=== PATIENT | female | born 1970 | race Caucasian/White ===

== ENCOUNTER → 2018-11-07 11:57 | Outpatient (CLI) | payer OTHER, SELFPAY ==
[2018-11-07 12:48] LABS: Hematocrit 35.5 % (36-46); Hemoglobin 12.1 g/dL (12.0-16.0); Mean Corpuscular HGB Conc 34.1 % (30-36); Mean Corpuscular Hemoglobin 34.8 PG (26-34); Mean Corpuscular Volume 102.1 fL (80-100); Red Blood Cell Count 3.48 X10^6/uL (4.0-5.2); Red Cell Distribution Width 16.9 % (11.6-14.8); White Blood Cell Count 4.3 X10^3/uL (4.5-11.0)
[2018-11-07 13:02] LABS: Alanine Aminotransferase 21 IU/L (9-52); Albumin 4.2 g/dL (3.5-5.0); Albumin Globulin Ratio 1.5 (1.0-2.8); Alkaline Phosphatase 57 U/L (38-126); Aspartate Aminotransferase 16 IU/L (14-36); BUN Creatinine Ratio 27.5 (6-22); Bilirubin Total 0.1 mg/dL (0.2-1.3); Blood Urea Nitrogen 22 mg/dL (7-17); Calcium 9.3 mg/dL (8.4-10.2); Carbon Dioxide 24 mmol/L (22-32); Chloride 106 mmol/L (98-107); Estimated Glomerular Filt Rate > 60.0 mL/min (>60); Globulin 2.8 g/dL (1.7-4.1); Glucose 87 mg/dL (70-100); HEMOLYSIS < 15 (0-50); Potassium 4.1 mmol/L (3.4-5.1); Sodium 140 mmol/L (137-145)
[2018-11-07 13:32] LABS: Add Manual Diff / Slide Review YES
[2018-11-07 13:35] LABS: Neutrophils Absolute Manual 1462 /uL (3000-5900); Total Cells Counted 50
[2018-11-07 13:36] LABS: Anisocytosis 2+
[2018-11-07 13:43] LABS: Platelet Count 28 X10^3/uL (150-400)
== END ==
PROVIDERS: Visit Provider Orthopaedic Surgery Orthopaedic Surgery of the Spine
DX: Z01.812 Encounter for preprocedural laboratory examination (principal)
CPT/HCPCS: 36415; 80053; 85025

== ENCOUNTER → 2018-11-20 15:03 | Outpatient (CLI) | payer OTHER, SELFPAY ==
[2018-11-20 15:52] LABS: Add Manual Diff / Slide Review NO; Basophils Absolute Auto 0 /uL (0-100); Basophils Percent Auto 0.3 % (0-2); Eosinophils Absolute Auto 0 /uL (0-450); Eosinophils Percent Auto 0.5 % (2-4); Hematocrit 34.3 % (36-46); Hemoglobin 11.4 g/dL (12.0-16.0); Lymphocytes Absolute Auto 1800 /uL (1100-4500); Lymphocytes Percent Auto 46.1 % (25-40); Mean Corpuscular HGB Conc 33.1 % (30-36); Mean Corpuscular Hemoglobin 34.5 PG (26-34); Mean Corpuscular Volume 104.2 fL (80-100); Monocytes Absolute Auto 400 /uL (0-900); Monocytes Percent Auto 10.3 % (3-14); Neutrophils Absolute Auto 1700 /uL (1500-7000); Neutrophils Percent Auto 42.8 % (50-75); Red Cell Distribution Width 17.1 % (11.6-14.8); White Blood Cell Count 3.9 X10^3/uL (4.5-11.0)
[2018-11-20 16:21] LABS: Platelet Count 27 X10^3/uL (150-400)
[2018-11-20 16:22] LABS: Anisocytosis 1+; Macrocytosis 1+
[2018-11-20 16:32] LABS: Alanine Aminotransferase 33 IU/L (9-52); Albumin Globulin Ratio 1.5 (1.0-2.8); Alkaline Phosphatase 65 U/L (38-126); Aspartate Aminotransferase 18 IU/L (14-36); BUN Creatinine Ratio 17.1 (6-22); Blood Urea Nitrogen 12 mg/dL (7-17); Calcium 9.3 mg/dL (8.4-10.2); Carbon Dioxide 24 mmol/L (22-32); Chloride 100 mmol/L (98-107); Estimated Glomerular Filt Rate > 60.0 mL/min (>60); Globulin 2.6 g/dL (1.7-4.1); Glucose 92 mg/dL (70-100); HEMOLYSIS < 15 (0-50); Sodium 135 mmol/L (137-145); Total Protein 6.6 g/dL (6.3-8.2)
[2018-11-20 16:36] LABS: Bilirubin Total < 0.1 mg/dL (0.2-1.3)
== END ==
LOC: LAB 15:12
PROVIDERS: Visit Provider Orthopaedic Surgery Orthopaedic Surgery of the Spine
DX: Z01.812 Encounter for preprocedural laboratory examination (principal)
CPT/HCPCS: 36415; 80053; 85025

== ENCOUNTER 2018-11-22 09:04 | Inpatient (IN) | payer OTHER, SELFPAY ==
[2018-11-19 13:50] VITALS: BMI 32.3
[2018-11-22] VITALS (34 sets, daily range): BP systolic 85–132; BP diastolic 43–85; PULSE 60–115; RESP 10–23; TEMP 36.5–37.2; O2SAT 91–99; BMI 32.3
--- NOTE | 2018-11-22 09:42 | SUR.PREOP ---
0927 - Temp - 99.0 at this time pt. stated I have chest pain described it as tight. Platelet infusion stopped, vital signs WNL see TAR, pt. requested that she sit up a little more, maybe that will help; assisted pt. up higher in bed; spouse at bedside; pt. immediately stated she felt relief of chest pain. Updated anesthesia with reaction, intervention, VS; anesthesia ok'd infusion to resume at slower rate. Rate changed to 50ml/hr
--- NOTE | 2018-11-22 09:51 | SUR.PREOP ---
0942 Temp - 99.0 No c/o discomfort. Pt. talking with spouse. Will continue to monitor. Platelets infusing @ 50ml/hr.
--- NOTE | 2018-11-22 09:57 | SUR.PREOP ---
0945 VVS, pt. comfortable.
--- NOTE | 2018-11-22 11:11 | SUR.PREOP ---
1030 - pt. tolerating platelet infusion, no c/o issues. Resting sitting up with spouse at bedside.
--- NOTE | 2018-11-22 11:12 | SUR.PREOP ---
1100 Pt. continues to be doing well, no chills, no c/o issues; resting comfortably while infusion continues. Double check the policy of platelet infusion and able increase rate 4-8 ml/kg/hr; pt. 91 kg which this RN increased infusion to 364ml/hr, will monitor closely.
--- NOTE | 2018-11-22 11:48 | SUR.PREOP ---
1130 Platelet infusion completed. Pt DID NOT have any reaction to infusion. VSS
--- NOTE | 2018-11-22 11:49 | SUR.PREOP ---
1140 Lab here to draw post infusion platelet level
--- NOTE | 2018-11-22 11:50 | SUR.PREOP ---
1145 pt. repositioned in bed, more comfortable, c/o neck pain - placed warm compress behind neck with good effects, per pt.
[2018-11-22 11:53] LABS: Platelet Count 71 X10^3/uL (150-400)
--- NOTE | 2018-11-22 12:55 | SUR.PREOP ---
Call placed to OR 3, notified MDs pt c/o headache. Fentanyl order pending.
[2018-11-22] MEDS: fentaNYL 100 MCG/2 ML INJ 50 MCG IV (13:07)
--- NOTE | 2018-11-22 13:51 | PM.PREOP ---
Pre-operative Note Interval Note History & Physical reviewed/Exam performed by Physician: Yes Changes to H&P: No
[2018-11-22] MEDS: CEFAZOLIN 2 GM/100 ML FROZ.PIGGY IV ×2 (14:10→22:50)
--- NOTE | 2018-11-22 14:50 | SUR.OPER ---
Prone on spine table, head in foam head support, padded chest and pelvic supports, gel pad at knees, lower legs supported by pillows; nipples, genitalia and toes free of pressure, arms secured on foam padded arm boards at <90 degrees abduction. Tape over blanket at thigh secured to table.
[2018-11-22] MEDS: BUPIVACAINE LIPOSOME 266 MG/20 ML VIAL INJ (15:00)
[2018-11-22] MEDS: BUPIVACAINE 0.25% W/ EPI VIAL 30 ML INJ (15:01)
[2018-11-22] MEDS: ACETAMINOPHEN IV 1,000 MG/100 ML VIAL 400 MG IV (16:01)
[2018-11-22] MEDS: LACTATED RINGERS 1,000 ML 42 ML IV ×2 (16:43→19:49)
--- NOTE | 2018-11-22 18:07 | DI.RAD.S_ITS ---
PROCEDURE: XR LUMBAR SPINE 2-3V INDICATIONS: L3-4 L4-5 TLIF TECHNIQUE: 2 views of the lumbar spine were acquired. COMPARISON: [facility] LISHA Castro, XR LUMBAR SPINE 2 OR 3 VIEWS, 09/10/2018, 14:39. [facility] Dante Hoskins RF, LUMBAR SPINE INTERIAMINAR, 09/30/2018, 15:45. FINDINGS: Fluoroscopic images demonstrating L3-4 and L4-5 fusion with intervertebral spacers are present. Hardware is intact and there is good anatomic alignment. IMPRESSION: L3-4 and L4-5 fusion as above. Dictated by: Sierra Jules M.D. on 11/22/2018 at 18:20 Approved by: Sierra Jules M.D. on 11/22/2018 at 18:21
--- NOTE | 2018-11-22 18:20 | P.OP_ITS ---
Operative Date/Time/Diagnoses Date of procedure: 11/22/18 Time of procedure: 14:18 Pre-op diagnosis: 1. L3-4, L4-5 spondylolisthesis 2. L2-3, L3-4, L4-5 spinal stenosis 3. L3-4, L4-5 spondylosis with radiculopathy Post-op diagnosis: same Procedure & Clinicians Procedure: 1. L3-4, L4-5 Postero-lateral and posterior interbody fusion 2. L3-4, L4-5 interbody cage placement. 3. L2-3, L3-4, L4-5 decompressive laminectomy with bilateral facetecomies 4. L3-4, L4-5 Posterior segmental instrumentation 5. Johnston of bone marrow from iliac crest 6. Utilization of microsurgical technique and operating microscope Same procedure as scheduled: Yes Indications: Patient has been having chronic back pain and worsening lumbar radiculopathy. Patient failed multiple conservative management with worsening pain weakness and numbness in her lower extremity. Patient has been having difficulty performing activity of daily living. After discussing risks benefits of treatment options, patient elected proceed with surgery. Surgeon: Garcia Hale Meat Cutting Block Repairer: Lisa Pardo Click Yes if Unassisted: No Anesthesia Type: General Operative Notes Closure Type: primary Prosthetic devices, grafts, tissues, transplants, or devices: Globus revolve screws, Rise cages Applied: catheter Estimated Blood Loss (mL): 250 Blood products transfused: none Procedure in detail: Patient was seen in the preoperative area. Risks and benefits of the surgery was discussed with the patient. Informed consent was obtained from the patient and placed in the chart. Surgical site was marked. Patient was taken to the operative room. General anesthesia was administered. Prophylactic antibiotic was given to the patient less than 30 min before the incision was made. Patient was placed into a prone position on the Marciano table. Patient's back was then prepped and draped in the sterile fashion. Time- out was performed at this time. Using AP and lateral C-arm imaging the interval between L2-5 was identified and marked on patient's back. A 2 inch incision 2 in from midline was made on the right side first. The fascia was incised in line with skin incision. Globus MARS retractors was placed inside the incision and docked onto the L2, L3, and L4 lamina. Using microsurgical technique and operating microscope, a L2, L3, and L4 laminecomy and L3-4, L4-5 facetectomy was performed using a Kerrison rongeur. During the process of decompression more than 75% of bilateral L3-4, L4-5 facets were removed in order to decompress the spinal canal and the lateral recess. The L3-4, L4-5 level was grossly unstable after the decompression was completed and requiring the fusion procedure. The disc space at L3-4, L4-5 was identified. And a total diskectomy was performed at L3-4, L4-5 level. The endplates were decorticated using a rasp and shaver. The total diskectomy and decortication was performed at L3-4, L4-5 level in order to to accomplish a L3- 4, L4-5 fusion. The local bone from the laminectomy and facetectomy was saved for local bone grafting. After the total diskectomy and decortication was completed, Globus viacell bone graft material was combined with local bone that was harvested earlier. At this time, a separate skin is incision was made over the iliac crest. A Jamshidi needle was inserted into the iliac crest through a separate skin incision. 5 cc of bone marrow aspiration was obtained through the separate skin incision using a Jamshidi needle from the iliac crest. The bone marrow aspiration was combined with local bone and the via cell bone grafting material. The bone grafting material was placed into the L3-4, L4-5 interbody space along with two cages, one expandable cage at each level. The cages were expanded to their maximum height using the torque limiting screwdriver. At this time a mirror image incision was made on the left side. The fascia was incised in line with the skin incision. Globus MARS retractor was inserted and docked onto the L3-4, L4-5 posterolateral gutter. Using the power drill, posterior-lateral decortication was performed at L3-4, L4-5 level until bleeding cortical bone was identified. The remaining bone grafting material was placed into the L3-4, L4-5 posterior lateral gutter he order to accomplish posterolateral fusion at the L3-4, L4-5 levels. Using the double C-arm technique, pedicle screws were placed into the L3, L4, L5 pedicles bilaterally. This was done by placing the Jamshidi needle into the pedicles, then placing the guidewires over the Jamshidi needle, and finally placing the cannulated screws over the guidewires bilaterally. After the pedicle screws were placed, 2 titanium rods was locked into the heads of the pedicle screws using locking caps and torque limiting screwdriver. Total 6 pedicles screws were placed. After all the hardware was placed, and confirmed with AP and lateral C-arm imaging, the wound was then irrigated with sterile normal saline and packed with Ray-Christina gauze for 3 min to accomplish hemostasis. After the gauze was removed the deep fascia was closed with #1 Vicryl suture. The subcutaneous layer was closed with 2-0 Vicryl. The skin was closed with skin elizabeth. Patient tolerated the procedure well. There were no complications. Complications: none Condition: stable Disposition: PACU Plan for aftercare: Admit to inpatient hospital
[2018-11-22] MEDS: LORazepam 2 MG/ML SYRINGE 0.25 MG IV ×2 (18:40→18:50)
[2018-11-22] MEDS: HYDROMORPHONE 2 MG INJ 1 MG IV ×4 (18:41→19:10)
--- NOTE | 2018-11-22 19:45 | SUR.PHASEI ---
Assumed care. Spouse brought to bedside with pt's permission. Hr decreased to 85, pt relaxed with spouse at bedside. IV patent.
--- NOTE | 2018-11-22 19:49 | SUR.PHASEI ---
Called Dr. Frye and talked with him about patients ongoing pain. he is well aware of pt's status and her pain managment. Orders obtained for more pain medication. Pt is being frequently assessed and frequently reposistioned. pt continues to complain of pain and her is now at bedside. Report given to Clifford Myers RN. pt is resting off and on
[2018-11-22] MEDS: HYDROMORPHONE 2 MG INJ IV (19:50)
--- NOTE | 2018-11-22 20:03 | SUR.PHASEI ---
Pt was hitting the side rails, pulling aggressively on spouses arm, and biting on the o2 tube. Medicated with 2mg of dilaudid. Pt sleeping intermittently.
[2018-11-22] MEDS: hydrOXYzine 50 MG/ML INJ IM (20:16)
--- NOTE | 2018-11-22 20:24 | SUR.PHASEI ---
pt stating just let me , I cant take the pain.
--- NOTE | 2018-11-22 20:47 | SUR.PHASEI ---
Report called to TOM Valenzuela
[2018-11-22] MEDS: SODIUM CHLORIDE 0.9% 1,000 ML 100 ML IV (21:00)
[2018-11-22] MEDS: HYDROMORPHONE 1 MG INJ 0.5 MG IV (21:05)
--- NOTE | 2018-11-22 21:22 | SUR.PHASEI ---
2006 Dr. Frye called, notified pt aggressive, discussed medications pt received. VVO for 50 IM Vistaril. Pt to be placed in ICU for close monitoring due to high doses of pain medication per Dr. Frye. Hiwot, coordinator notified. Pt medicated. Pt able to sleep for longer period of time. 2122 Pt transferred to ICU with o2 and silo erector. Report to Bianca, pt woke during transfer and began crying. IV saline locked. Belongings bag and flowered bag with purse with patient. Spouse at bedside. Dr. Frye called at 2105 and pt status discussed. DISH CLOTH INSPECTOR of Dilaudid at standard settings ordered, and verified ok to use Dr. Hale's ordered pain medications in addition to the DISH CLOTH INSPECTOR. Ortho to resume patient pain management per Dr. Frye. Bianca notified.
[2018-11-22] MEDS: DOCUSATE 100 MG CAPSULE PO (21:57)
[2018-11-22] MEDS: OXYCODONE ER 10 MG TAB 20 MG PO (21:58)
--- NOTE | 2018-11-22 22:14 | PC.NURSE ---
2051 - Patient brought to room 103 from PACU in bed. Patient yelling and hollering at times and then falls asleep quickly. Significant other at bedside. Able to move all extremities. Dressing to mid back dry and intact except for small sanguinous spot to top left. Patient oriented to room and call light. Call light within reach. 2129 - Patient continues to yell in room and move around the bed. Have instructed patient to not twist or bed back. BUILDING COORDINATOR initiated per orders.
[2018-11-22] MEDS: HYDROMORPHONE PCA (6MG/30ML) 6 MG/30 ML PCA.VIAL IV (22:39)
[2018-11-23] VITALS (8 sets, daily range): BP systolic 96–144; BP diastolic 49–91; PULSE 78–99; RESP 13–16; TEMP 37–37.7; O2SAT 93–100
[2018-11-23] MEDS: HYDROMORPHONE 1 MG INJ 0.5 MG IV (00:38)
--- NOTE | 2018-11-23 01:04 | PC.NURSE ---
Addendum entered by Lani Marin R.N. 11/23/18 06:19: Pt moaning and crying in room. C/O headache and reports that the OFFSET DUPLICATING MACHINE OPERATOR won't help that. Requesting Motrin not tylenol that won't help. Dr. Myrick called X 2 for orders. Unable to get ahold of him. Will continue to attempt. Original Note: Addendum entered by Lani Marin R.N. 11/23/18 05:39: Pain better controlled. Pt sleeping but awakens yelling out and thrashing, then crying. Encouraged OFFSET DUPLICATING MACHINE OPERATOR use. C/O headache. Original Note: Pt with continued uncontrolled pain 07/10. Verbally aggressive with staff along with frequent yelling out. Dr. Myrick made aware of inadequate pain control, orders to increase OFFSET DUPLICATING MACHINE OPERATOR dose to 0.4 mg. Pt's returned to bedside and does a good job at keeping her calm. VSS, Sp02 95% RA. Tolerating regular diet. Will monitor closely.
[2018-11-23 05:22] LABS: Add Manual Diff / Slide Review NO; Basophils Absolute Auto 0 /uL (0-100); Basophils Percent Auto 0.2 % (0-2); Eosinophils Absolute Auto 0 /uL (0-450); Hematocrit 27.2 % (36-46); Hemoglobin 9.2 g/dL (12.0-16.0); Lymphocytes Absolute Auto 1500 /uL (1100-4500); Lymphocytes Percent Auto 29.7 % (25-40); Mean Corpuscular HGB Conc 33.8 % (30-36); Mean Corpuscular Volume 103.6 fL (80-100); Monocytes Absolute Auto 400 /uL (0-900); Monocytes Percent Auto 7.6 % (3-14); Neutrophils Absolute Auto 3100 /uL (1500-7000); Neutrophils Percent Auto 62.5 % (50-75); Red Blood Cell Count 2.63 X10^6/uL (4.0-5.2); Red Cell Distribution Width 17.1 % (11.6-14.8); White Blood Cell Count 4.9 X10^3/uL (4.5-11.0)
[2018-11-23 05:23] LABS: Platelet Count 52 X10^3/uL (150-400)
[2018-11-23] MEDS: CEFAZOLIN 2 GM/100 ML FROZ.PIGGY IV (05:28)
[2018-11-23] MEDS: HYDROMORPHONE PCA (6MG/30ML) 6 MG/30 ML PCA.VIAL IV ×4 (05:32→22:05)
[2018-11-23] MEDS: DOCUSATE 100 MG CAPSULE PO ×2 (08:08→21:23)
[2018-11-23] MEDS: IBUPROFEN 400 MG TABLET PO (08:08)
[2018-11-23] MEDS: OXYCODONE ER 10 MG TAB 20 MG PO (08:09)
[2018-11-23] MEDS: MAG HYDROX/ALUM/SIMETH 30 ML UDC PO (08:30)
--- NOTE | 2018-11-23 09:41 | PM.PNPO.1 ---
Subjective Date Patient Seen: 11/23/18 Time Patient Seen: 09:41 Interval history: POD #1 s/p TLIF with Dr. Hale. Patient has had difficulty with pain control overnight. She is using a dilaudid LINER WORKER. Prior to surgery she was taking 100mg of Oxycodone daily. She states she had a headache and advil is the only thing that works for her. It was relieved with 400mg of advil. She has used steroids in the past with no adverse reactions. She is having dyspepsia and requesting tums. Her biggest complaint is shooting muscle spasms and radicular symptoms. Exam Vital Signs (past 8 hours): - 11/23/18 02:24 11/23/18 02:32 11/23/18 04:22 Temperature Pulse Rate 86 78 90 Respiratory Rate 13 16 16 Blood Pressure 96/50 L 122/87 116/91 H Pulse Oximetry 95 100 95 11/23/18 07:52 Temperature 99.8 F H Pulse Rate 99 H Respiratory Rate 14 Blood Pressure 144/88 H Pulse Oximetry 100 Oxygen Delivery Method Room Air Oxygen Flow Rate 3 Narrative Exam Narrative: Patient sitting in bedside chair in NAD. She is alert and oriented x3. Dressing on back is clean, dry and intact. No signs of any drainage. SILT throughout BLEs. Calves are soft, compressible, and nontender bilaterally. Pulses are symmetrical. Objective Labs Result Diagrams: 11/23/18 04:36 Labs: Laboratory Results - last 24 hr 11/22/18 11/22/18 11/22/18 08:15 11:40 21:15 WBC RBC Hgb Hct MCV MCH MCHC RDW Plt Count 71 L Neut % (Auto) Lymph % (Auto) [place] % (Auto) Eos % (Auto) Baso % (Auto) Neut # (Auto) Lymph # (Auto) [place] # (Auto) Eos # (Auto) Baso # (Auto) Nasal Screen MRSA (PCR) Negative for mrsa Antibody Screen Negative 11/23/18 04:36 WBC 4.9 RBC 2.63 L Hgb 9.2 L Hct 27.2 L MCV 103.6 H MCH 35.0 H MCHC 33.8 RDW 17.1 H Plt Count 52 L Neut % (Auto) 62.5 Lymph % (Auto) 29.7 [place] % (Auto) 7.6 Eos % (Auto) 0.0 L Baso % (Auto) 0.2 Neut # (Auto) 3100 Lymph # (Auto) 1500 [place] # (Auto) 400 Eos # (Auto) 0 Baso # (Auto) 0 Nasal Screen MRSA (PCR) Antibody Screen Assessment & Plan Post-op (1) S/P lumbar fusion: Current Visit: Yes Status: Acute (2) Chronic, continuous use of opioids: Current Visit: Yes Status: Acute Postoperative Procedures Operation Date: 11/22/18 10:45 Actual Procedures Side Surgeon p L3-4,L4-5 TLIF w/Posterior Instru. Garcia Hale MD Patient will mobilize with PT today. No excessive bending, lifting, or twisting. She normally takes Oxycodone 10mg every 3 hours and will take this while in the hospital. She was started on 10mg of decadron now, and 4 mg every 6 hours for 24 hour steroid burst for radicular symptoms. She can take vistaril for muscle spasms. Patient wanting advil order if she has another headache, she was instructed she can have max of 400mg daily as her platelets are 52 and we do not want to increase the risk of developing an epidural hematoma. If patient's dressing becomes saturated or drainage issues she will need a platelet transfusion. She will likely DC in next 2-3 days once pain is adequately controlled and she is mobilizing safely.
[2018-11-23] MEDS: hydrOXYzine pamoate 25 MG CAPSULE PO ×2 (09:50→13:54)
[2018-11-23] MEDS: DEXAMETHASONE 10 MG/ML VIAL IV (09:50)
--- NOTE | 2018-11-23 10:25 | PT.IIE ---
Current Diagnoses Spondylolisthesis, lumbar region (11/22/18) Other spondylosis with radiculopathy, lumbar region (11/22/18) Spinal stenosis, lumbar region with neurogenic claudication (11/22/18) Surgery Performed Operation Date: 11/22/18 10:45 Actual Procedures p L3-4,L4-5 TLIF w/Posterior Instru. - Garcia Hale MD Surgical History (Last Updated 11/19/18 @ 14:00 by Ashley March RN) History of augmentation of both breasts (Acute) History of section (Acute) Hx laparoscopic cholecystectomy (Acute) Hx of abdominoplasty (Acute) Hx of appendectomy (Acute) Hx of arthroscopy of right knee (Acute) S/P epidural steroid injection (Acute) Medical History (Last Updated 11/19/18 @ 14:00 by Ashley March RN) Anemia (Acute) Chronic idiopathic thrombocytopenia (Acute) Chronic pain (Acute) Depression (Acute) Fibromyalgia (Acute) History of hysterectomy (Acute) Hypothyroid (Acute) IBS (irritable bowel syndrome) (Acute) Lumbar spinal stenosis (Acute) Right foot injury (Acute) Spondylolisthesis (Acute) Physical Therapy Inpatient Evaluation/Re-Eval M1 PT/OT-IP Prior Functional Status Start: 11/23/18 12:15 Freq: NEEDED Status: Active Protocol: Document 11/23/18 10:25 AB (Rec: 11/23/18 12:38 AB [id number]) Medical Review Prior Functional Status Medical History Reviewed Yes Communication able to make needs known Mobility and Gait pt stated that she is independent with all mobilities and ambulation without AD Social History Household Members spouse Living Arrangements House Number of Floors (Floors) Two Floors Number of Stairs To Enter/Railing? 5 steps to enter with bilateral rails 16 steps to bedroom level with R rail ascending and wall on L Home Environment Standard Height Toilet Tub/Shower Home Equipment Hand Held Shower Employment Status Unemployed M2 PT-IP Current Condition Start: 11/23/18 12:15 Freq: NEEDED Status: Active Protocol: Document 11/23/18 10:25 AB (Rec: 11/23/18 12:38 [id number]) Physical Therapy Current Condition Current Condition Evaluation Date 11/23/18 Treatment Diagnosis L3-L5 fusion/lami; difficulty in walking Onset Date 11/22/18 Precautions Lumbar Precautions Log Roll No Twisting Limit Bending Lifting Restriction of 10 lbs Gait Belt above Incisional Area M3 PT-IP Subjective Start: 11/23/18 12:15 Freq: NEEDED Status: Active Protocol: Document 11/23/18 10:25 AB (Rec: 11/23/18 12:38 [id number]) Subjective Physical Therapy Visit Type Type Initial Evaluation Visit Start Time 10:25 Visit Stop Time 11:00 Total Visit Minutes 35 Number of GLOBAL REGULATORY AFFAIRS MANAGER Visits 0 Physical Therapy Visit Comments Patient Comments pt agreeable to do PT Therapy Pain Assessment Pain When Pain Assessed At Rest Pain Present Pain Present Pain Reported Location Head Intensity 6 Scale Used Numeric (1 - 10) Pain Management Techniques Apply Cold Distraction Re-positioning Timing of Activity with Medications M4 PT-IP Mobility and Gait Start: 11/23/18 12:15 Freq: NEEDED Status: Active Protocol: Document 11/23/18 10:25 AB (Rec: 11/23/18 12:38 [id number]) PT-Transfer Assessment Sit to and From Stand Sit to and from Stand Maximum Assistance 2 Person Assistance Use of Upper Extremities Equipment Transfer Assistive Device Gait Belt Front Wheeled Walker Comments Mobility Comments pt found sitting on chair. stated that the bed is so uncomfortable. pt completed sit to stand from chair requiring max A x 2 and max cues. pt with (+) bilateral knee buckling. pt stated that she is tired and sleepy. pt assisted down to chair requiring max A x 2 for controlled descent to chair. positioned pt on chair. call light and table placed within reach. Left pt with OT. Gait Assessment Comments Gait Comments unable at this time PT-Balance Assessment Sitting Balance and Reactions Static Sitting Balance Ability Fair Dynamic Sitting Balance Ability Fair Standing Balance and Reactions Static Standing Balance Ability Poor Dynamic Standing Balance Ability Poor Device Used with FWW M5 PT-IP Objective Assessments Start: 11/23/18 12:15 Freq: NEEDED Status: Active Protocol: Document 11/23/18 10:25 AB (Rec: 11/23/18 12:38 [id number]) Orientation Orientation/Cognition Level of Alertness Alert Orientation Name Age Place Situation Gross Range of Motion Lower Extremity ROM Assessment Bilaterally Impaired Impairments pain limiting movement Strength Lower Extremity Strength Assessment Bilaterally Impaired Comments Strength Comments RLE: 3+/5 LLE: 3/5 Sensation Assessment Sensation Gross Sensation Left LE Impaired Sensation Description Numbness Comments Sensation Comments c/o L foot numbness/decrease sensation Muscle Tone Muscle Tone WNL Yes M6 PT-IP Treatment Start: 11/23/18 12:15 Freq: NEEDED Status: Active Protocol: Document 11/23/18 10:25 AB (Rec: 11/23/18 12:38 AB [id number]) Physical Therapy Treatment Education Education Provided Precautions Weight Bearing Status Post-Op Packet Safety M7 PT-IP Assessment and Plan Start: 11/23/18 12:15 Freq: NEEDED Status: Active Protocol: Document 11/23/18 10:25 AB (Rec: 11/23/18 12:38 AB [id number]) PT Summary Assessment and Plan Potential Rehabilitation Potential Fair Status of Condition at Evaluation Evolving Summary Impairments Pain ROM Strength Balance Coordination Sensation Tone Cognition Bed Mobility Transfers Gait Activity Tolerance Assessment Summary pt requiring 2 person assist with mobility at this time and unable to ambulate and with ( +) knee buckling during standing. pt at this time will require SNF rehab to improve strength and functional mobility. will continue to assess progress. Goals Bed Mobility Goal Standby Assistance Transfer Goal Standby Assistance Front Wheeled Walker Gait Goal Standby Assistance Front Wheel Walker Gait Distance 150 Other Goals up/down 5 steps with bialteral rails CGA up/down 16 steps with R rail ascending CGA Days to Meet Goals 5 Frequency of Treatment Frequency Of Treatment Twice a Day Treatment Plan Physical Therapy Treatment Plan Bed Mobility Training Transfer Training Gait Training Therapeutic Exercise Balance Retraining Post Op Education Discharge Planning Hot or Cold Pack Neuromuscular Re-ed Coordination Retraining Manual Therapy Other Recommendations and Next Treatment transfers, ambulation Focus Recommendations To Nursing Amount of Assist Needed 2 Person Assist Discharge Recommendations PT Discharge Recommendations SNF Rehab Equipment Needed for Home Before FWW: if pt is going home Discharge
--- NOTE | 2018-11-23 12:41 | CM.DANOTE ---
Patient is a 48 year old female who was admitted on 11/22/18 for Orthopedic Surgery. Pt has [employer] for insurance and her PCP is not listed. EMR was reviewed. Per RN, pt had inadequate pain control overnight and spouse was bedside and able to soothe the pt. Per PT, currently recommending SNF at d/c due to pt's buckling and pain. SW met bedside with pt and spouse and explained role and updated white board. Pt and spouse confirm that they live at home in [place] and pt is Independent with ADL's at baseline and drives. Spouse works but plans to take as much time off as needed to assist the pt at d/c. Pt denies any hx of HH or SNF. SW discussed SNF recommendation and provided pt and spouse with the SNF/HH Choice List. Pt and spouse state that their preference is home with spouse assist and maybe HH if possible and anticipate that pt will make enough progress while here in the hospital to be able to safely d/c home. SW discussed the HH disciplines and frequency vs SNF rehab and discussed the need for [employer] auth for SNF at a contracted facility if they decide home is not an option at discharge. Pt and spouse appreciative of the information and they will review the SNF/HH Choice list and wait for further PT/OT to determine home vs SNF. SW updated RN. Plan: SW to follow for further PT/OT to determine if pt will progress enough for safe d/c home with spouse assist and HH vs SNF. If SNF, [employer] auth needed for a [facility] contracted facility. Spouse reviewing Choice List and preference is home. BUZZ Whitlock Discharge Planning/Care Management CM Discharge Assessment Start: 11/23/18 12:38 Freq: Status: Active Protocol: Document 11/23/18 12:39 BF (Rec: 11/23/18 12:41 BF [id number]) Discharge Planning Assessment Assigned Laminator Preforms BUZZ Mendes Advance Directives? No Advance Directives on File No History Provided By Patient Significant Other Medical Record Has Patient been admitted in last 30 No days? Prior Living Arrangements House Household Members spouse Type of transporation used prior to Drives own vehicle admit Independent with ADL's Yes Is patient alert and oriented? Yes Caregiver for Another No Patient/Family Preference Home with Home Health Comment Per PT, possible SNF vs Home Comment Pt and spouse preference is home but reviewing SNF Choice List Barriers to Discharge No Discharge Plan Home with Home Health [facility] Physical Therapy Transportation Arrangement If home, spouse can provide transport. If SNF, then likely facility van Additional Comment Waiting for further PT/OT to determine if SNF or HH referral needed. Medicare Choice List Provided Yes SNF/HH Preference Reviewing Whiteboard Updated in Patient Room with Yes name and ext. # of Laminator Preforms Review Status In Process Please Provide Date Initial DC 11/23/18 Assessment Was Performed Next Review Type Continued Stay Review Pre-Anesthesia Assessment Start: 11/19/18 13:50 Freq: Status: Complete Protocol: Document 11/19/18 13:50 CAB (Rec: 11/19/18 14:09 CAB [id number]) Pre-Anesthesia Assessment PAC Comment Critical Platelet count of 28. Dr. Hale ordering platelet infusion dos prior to surgery* Pt has a history of idiopathic thrombocytopenia Patient Information Reviewed Via Phone Assessment Assessment Completed With Patient Diagnostic Results BMP/CMP CBC Primary Care Provider Radha Urbano Seen Specialist in Last 12 Months Yes Specialist Seen Orthopedist Primary Language Urdu Sports Leadership Instructor Required No Height 167.64 cm Weight 90.718 kg Body Mass Index (BMI) 32.3
--- NOTE | 2018-11-23 13:40 | OT.IP.EVAL ---
Current Diagnoses Opioid use, unspecified, uncomplicated (11/22/18) Spondylolisthesis, lumbar region (11/22/18) Other spondylosis with radiculopathy, lumbar region (11/22/18) Spinal stenosis, lumbar region with neurogenic claudication (11/22/18) Arthrodesis status (11/22/18) Surgery Performed Operation Date: 11/22/18 10:45 Actual Procedures p L3-4,L4-5 TLIF w/Posterior Instru. - Garcia Hale MD Past Medical History (Last Updated 11/19/18 @ 14:00 by Ashley March RN) Anemia (Acute) Chronic idiopathic thrombocytopenia (Acute) Chronic pain (Acute) Depression (Acute) Fibromyalgia (Acute) History of hysterectomy (Acute) Hypothyroid (Acute) IBS (irritable bowel syndrome) (Acute) Lumbar spinal stenosis (Acute) Right foot injury (Acute) Spondylolisthesis (Acute) Surgical History (Last Updated 11/19/18 @ 14:00 by Ashley March RN) History of augmentation of both breasts (Acute) History of section (Acute) Hx laparoscopic cholecystectomy (Acute) Hx of abdominoplasty (Acute) Hx of appendectomy (Acute) Hx of arthroscopy of right knee (Acute) S/P epidural steroid injection (Acute) Occupational Therapy Inpatient Evaluation/Re-Eval M1 PT/OT-IP Prior Functional Status Start: 11/23/18 12:15 Freq: NEEDED Status: Active Protocol: Document 11/23/18 10:25 AB (Rec: 11/23/18 12:38 AB [id number]) Medical Review Prior Functional Status Medical History Reviewed Yes Communication able to make needs known Mobility and Gait pt stated that she is independent with all mobilities and ambulation without AD Social History Household Members spouse Living Arrangements House Number of Floors (Floors) Two Floors Number of Stairs To Enter/Railing? 5 steps to enter with bilateral rails 16 steps to bedroom level with R rail ascending and wall on L Home Environment Standard Height Toilet Tub/Shower Home Equipment Hand Held Shower Employment Status Unemployed M1 PT/OT-IP Prior Functional Status Start: 11/23/18 13:08 Freq: NEEDED Status: Active Protocol: Document 11/23/18 13:16 CCC (Rec: 11/23/18 13:40 CCC [id number]) Medical Review Prior Functional Status Medical History Reviewed Yes Communication able to make needs known Mobility and Gait pt stated that she is independent with all mobilities and ambulation without AD Activities of Daily Living and IADL's Pt able to do all ADL's, IADL' s, and taking care of her 3 horses and 5 dogs. Social History Household Members spouse Living Arrangements House Number of Floors (Floors) Two Floors Number of Stairs To Enter/Railing? 5 steps to enter with bilateral rails 16 steps to bedroom level with R rail ascending and wall on L Home Environment Standard Height Toilet Tub/Shower Home Equipment Hand Held Shower Employment Status Unemployed M2 OT-IP Current Condition Start: 11/23/18 13:08 Freq: Status: Active Protocol: Document 11/23/18 13:16 [facility] (Rec: 11/23/18 13:40 [facility] [id number]) Occupational Therapy Current Condition Current Condition Evaluation Date 11/23/18 Treatment Diagnosis Spinal Stenosis Diagnosis Onset Date 11/22/18 Post Operative Precautions Lumbar Precautions Log Roll No Twisting Limit Bending Lifting Restriction of 10 lbs Gait Belt above Incisional Area M3 OT- IP Subjective and Pain Start: 11/23/18 13:08 Freq: Status: Active Protocol: Document 11/23/18 13:16 [facility] (Rec: 11/23/18 13:40 [facility] [id number]) OT- Subjective Occupational Therapy Visit Type Type Initial Evaluation Visit Start Time 10:25 Visit Stop Time 11:15 Total Visit Minutes 50 Occupational Therapy Visit Comments Patient Comments Pt agreeable to try to get up, pt's present for OT/ PT eval. Patient/Caregiver Goals Pt ideally would like to go home but open to going to skilled rehab. OT Pain Assessment Pain When Pain Assessed At Rest Pain Present Pain Present Pain Reported M4 OT- IP ADL's Start: 11/23/18 13:08 Freq: Status: Active Protocol: Document 11/23/18 13:16 [facility] (Rec: 11/23/18 13:40 [facility] [id number]) OT ADL-Dressing General Eval Lower Body Dressing Ability Maximum Assistance Areas Needing Assistance Socks Comments OT Dressing Comments Able to educate pt on use of manager surgery and sock aid for LB dressing and able to show good understanding and safety during practice. Pt may also benefit form long handled shoe horn. OT ADL-Toileting Comments OT Toileting Comments Pt still has catheter in. Spoke of use of pads at night, BSC, and toilet aid. OT ADL-Bathing Comments OT Bathing Comments At this time unable to get into the shower and would require bed bath, however at home and when doing better may need tub bench as pt has a tub/shower at home. However if pt making good progress shower chair may be appropriate pending if she is able to step over the tub to get in. M5 OT- IP IADL's Start: 11/23/18 13:08 Freq: Status: Active Protocol: Document 11/23/18 13:16 [facility] (Rec: 11/23/18 13:40 [facility] [id number]) OT-Instrumental Activities of Daily Living Meal Preparation Meal Preparation Comments Pt's to be home to provide assist for all IADL needs in addition to ADl's. M6 OT- IP Functional Cognition Start: 11/23/18 13:08 Freq: Status: Active Protocol: Document 11/23/18 13:16 [facility] (Rec: 11/23/18 13:40 [facility] [email or web address]) Cognitive Factors Limiting Selfcare Function Cognitive Ability Level of Alertness Alert Patient Orientation Name Place Situation Attention Span Ability Capable of Focused Attention Capable of Sustained Attention Ability to Follow Commands Able to Follow One Step Commands Memory Description Short Term Impaired Safety Awareness Underestimates Need for Assistance Problem Solving Ability Needs Assist to Identify Solutions Cognitive Comments Cognitive Assessment Comments Pt not aware of any back precautions, after education able to recall 3/3. OT- Vision and Hearing OT- Hearing Assessment OT- Hearing Assessment WFL M7 OT- IP Mobility and Balance Start: 11/23/18 13:08 Freq: Status: Active Protocol: Document 11/23/18 13:16 [facility] (Rec: 11/23/18 13:40 [facility] [email or web address]) OT-Transfer Assessment Sit to and From Stand Sit to and from Stand Maximum Assistance 2 Person Assistance Comments Mobility Comments Pt just able to come to stand only MAX A X 2with FWW and buckling to legs and not able to tolerate standing and had to sit down. OT- Balance Assessment Sitting Balance and Reactions Static Sitting Balance Ability Normal Dynamic Sitting Balance Ability Good Standing Balance and Reactions Static Standing Balance Ability Poor M8 OT- IP Objective Assessments Start: 11/23/18 13:08 Freq: Status: Active Protocol: Document 11/23/18 13:16 [facility] (Rec: 11/23/18 13:40 [facility] [email or web address]) OT Gross Range of Motion Upper Extremity Range of Motion Assessment Within Functional Limits OT Strength Comments Strength Comments WFL M9 OT- IP Assessment and Plan Start: 11/23/18 13:08 Freq: Status: Active Protocol: Document 11/23/18 13:16 [facility] (Rec: 11/23/18 13:40 [facility] [id number]) OT Summary Assessment and Plan Potential Rehabilitation Potential Good Analytic Complexity at Evaluation Low Summary OT Impairments Pain Balance Functional Cognition Functional Mobility Grooming Dressing Toileting Bathing Toilet Transfers Shower Transfers Progress Towards Goals Slow Progress due to Pain Slow Progress due to Medical Issues Slow Progress due to Activity Tolerance Slow Progress due to Cognition Assessment Summary Pt low complexity and main barriers are pain, steps , and only able to tolerate standing with 2 person assist at this time. Pt needing extensive assist. Pending progress and caregiver training, pt may benefit from skilled rehab. Goals Grooming Goal Minimal Assistance Dressing Goal Minimal Assistance Toileting Goal Minimal Assistance Bathing Goal Moderate Assistance Toilet Transfer Goal Minimal Assistance Shower Transfer Goal Moderate Assistance Patient/Caregiver Education Goal Demonstrate Post-Op Precautions Caregiver Independent Assisting Patient Days to Meet Goals 5 Frequency of Treatment Frequency Of Treatment Once a Day Treatment Plan OT Treatment Plan ADL Training Functional Cognition Training Functional Mobility Patient/Family Education Discharge Planning Other Treatment Recommendations and [place] [facility] [place]. Treatment Focus Discharge Recommendations OT Discharge Recommendations Home with Assistance SNF Rehab Home Equipment Needs Tub bench, BSC, LB AED, toilet aid, FWW
--- NOTE | 2018-11-23 14:04 | PC.NURSE ---
Addendum entered by Luis Armando Nam R.N. 11/23/18 15:23: Pt used 6.7 mg of dilaudid TRADEMARK A[employer]IXER this shift. It is incorrectly noted on the MAR. Original Note: Rec'd pt in bed initially sleeping but then woke up about 0730 and was noted to be moaning/crying and moving self from side to side in bed. Pt reports severe headache for which only advil will work and tightness in back from laying in bed too long. States that this happens with her back normally but is worse now with addition of surgical pain. Encouraged use of TRADEMARK AFFIXER dilaudid, assisted pt to her left side, applied ice pack. Pt able to doze back to sleep after interventions. Called to Dr. Myrick and rec'd one time order for PO advil. Pt only briefly slept. Upon awakening, reports continued headache and requests OOB. 2PA to transfer from bed to chair with use of gait belt and fww. Pt did fairly well, mostly needing assistance with cues and line/cord management. Administered advil and scheduled oxycontin, refreshed ice pack and repositioned for comfort. Post med administration reports pain 5/10. Addressed with PA on rounds and rec'd orders for dexamethasone and vistaril which are given. PT/OT in to assess pt afterwards and assess difficulty mobilizing pt and report legs seem to be buckling bilaterally. Pt is more drowsy than prior to med administration, but does open eyes and answers questions appropriately. Suspect decreased mobility possibly r/t to sedative effect from medications. Neurovascular check is unchanged. 1230 pt reports her pain is 3/10 with spasming still present to a lesser degree. Reviewed rx and next dose due. Pt sitting up to chair intermittently dozing. Dsg checked and no further drainage seen. at bedside. Call light in easy reach.
--- NOTE | 2018-11-23 15:20 | PT.IPTN ---
Current Diagnoses Opioid use, unspecified, uncomplicated (11/22/18) Spondylolisthesis, lumbar region (11/22/18) Other spondylosis with radiculopathy, lumbar region (11/22/18) Spinal stenosis, lumbar region with neurogenic claudication (11/22/18) Arthrodesis status (11/22/18) Surgery Performed Operation Date: 11/22/18 10:45 Actual Procedures p L3-4,L4-5 TLIF w/Posterior Instru. - Garcia Hale MD Physical Therapy Treatment Note M2 PT-IP Current Condition Start: 11/23/18 12:15 Freq: NEEDED Status: Active Protocol: Document 11/23/18 10:25 AB (Rec: 11/23/18 12:38 AB [id number]) Physical Therapy Current Condition Current Condition Evaluation Date 11/23/18 Treatment Diagnosis L3-L5 fusion/lami; difficulty in walking Onset Date 11/22/18 Precautions Lumbar Precautions Log Roll No Twisting Limit Bending Lifting Restriction of 10 lbs Gait Belt above Incisional Area M3 PT-IP Subjective Start: 11/23/18 12:15 Freq: NEEDED Status: Active Protocol: Document 11/23/18 15:09 GGD (Rec: 11/23/18 15:20 GGD [id number]) Subjective Physical Therapy Visit Type Type Treatment Note Visit Start Time 14:45 Visit Stop Time 15:05 Total Visit Minutes 15 Number of INSTRUCTIONAL SUPPORT SPECIALIST Visits 1 Physical Therapy Visit Comments Patient Comments Pt willing to work with therpay. Therapy Pain Assessment Pain When Pain Assessed At Rest Pain Present Pain Present Pain Reported M4 PT-IP Mobility and Gait Start: 11/23/18 12:15 Freq: NEEDED Status: Active Protocol: Document 11/23/18 15:09 GGD (Rec: 11/23/18 15:20 GGD [id number]) PT-Transfer Assessment Sit to and From Stand Sit to and from Stand Contact Guard Assistance 1 Person Assistance Use of Upper Extremities Equipment Transfer Assistive Device Gait Belt Front Wheeled Walker Gait Assessment Gait Gait Assistance Required: Contact Guard Assist Distance (Feet) 70 Able to Maintain Weight Bearing Status Yes During Gait Assistive Devices Assistive Device Gait Belt Front Wheeled Walker Orthotic/Prosthetic Devices or Brace: No Gait Deviations General Gait Pattern Antalgic Factors Limiting Gait Function Factors Limiting Gait Function Decreased Sensation Decreased Strength Pain Poor Balance Poor Safety Awareness Comments Gait Comments Pt in chair with all needs in reach. RN informed pt's mobility, impulsive with gait and wanted door closed. M5 PT-IP Objective Assessments Start: 11/23/18 12:15 Freq: NEEDED Status: Active Protocol: Document 11/23/18 10:25 AB (Rec: 11/23/18 12:38 AB [id number]) Orientation Orientation/Cognition Level of Alertness Alert Orientation Name Age Place Situation Gross Range of Motion Lower Extremity ROM Assessment Bilaterally Impaired Impairments pain limiting movement Strength Lower Extremity Strength Assessment Bilaterally Impaired Comments Strength Comments RLE: 3+/5 LLE: 3/5 Sensation Assessment Sensation Gross Sensation Left LE Impaired Sensation Description Numbness Comments Sensation Comments c/o L foot numbness/decrease sensation Muscle Tone Muscle Tone WNL Yes M6 PT-IP Treatment Start: 11/23/18 12:15 Freq: NEEDED Status: Active Protocol: Document 11/23/18 15:09 GGD (Rec: 11/23/18 15:20 GGD [id number]) Physical Therapy Treatment Education Education Provided Precautions Safety M7 PT-IP Assessment and Plan Start: 11/23/18 12:15 Freq: NEEDED Status: Active Protocol: Document 11/23/18 15:09 GGD (Rec: 11/23/18 15:20 GGD [id number]) PT Summary Assessment and Plan Summary Assessment Summary Pt improving with mobility. She was able to ambulate with FWW. She did need mod cues for safety, precautions and hand placement with transfers. Pt was impulsive with mobility. She had no knee buckling with mobility. She will need further assessment for D/C planning. Frequency of Treatment Frequency Of Treatment Twice a Day Treatment Plan Physical Therapy Treatment Plan Bed Mobility Training Transfer Training Gait Training Therapeutic Exercise Balance Retraining Post Op Education Discharge Planning Hot or Cold Pack Neuromuscular Re-ed Coordination Retraining Manual Therapy Other Recommendations and Next Treatment bed mobility, ambulation Focus Recommendations To Nursing Amount of Assist Needed 1 Person Assist Discharge Recommendations PT Discharge Recommendations Home with Assistance SNF Rehab Equipment Needed for Home Before FWW: if pt is going home Discharge
[2018-11-23] MEDS: DEXAMETHASONE 4 MG TABLET PO ×2 (16:15→21:23)
[2018-11-23] MEDS: FERROUS SULFATE 325 MG TABLET PO (16:15)
[2018-11-23] MEDS: OXYCODONE ER 20 MG TAB PO (21:22)
[2018-11-23] MEDS: ASCORBIC ACID 500 MG TABLET PO (21:22)
[2018-11-23] MEDS: SENNOSIDES 8.6 MG TABLET 17.2 MG PO (21:23)
[2018-11-24] VITALS (7 sets, daily range): BP systolic 98–126; BP diastolic 56–80; PULSE 65–79; RESP 16–19; TEMP 36.6–37.2; O2SAT 94–98
[2018-11-24] MEDS: MAG HYDROX/ALUM/SIMETH 30 ML UDC PO (01:45)
[2018-11-24] MEDS: DEXAMETHASONE 4 MG TABLET PO ×2 (03:56→10:08)
[2018-11-24] MEDS: HYDROMORPHONE PCA (6MG/30ML) 6 MG/30 ML PCA.VIAL IV ×2 (04:14→14:26)
[2018-11-24] MEDS: LEVOTHYROXINE 137 MCG TABLET PO (06:01)
[2018-11-24] MEDS: CALCIUM CARBONATE 500 MG TAB PO (07:30)
[2018-11-24] MEDS: OXYCODONE IR 5 MG TABLET 10 MG PO ×4 (07:31→20:40)
[2018-11-24 07:56] LABS: Hematocrit 26.7 % (36-46); Hemoglobin 8.9 g/dL (12.0-16.0); Mean Corpuscular HGB Conc 33.4 % (30-36); Mean Corpuscular Hemoglobin 34.7 PG (26-34); Mean Corpuscular Volume 103.8 fL (80-100); Platelet Count 44 X10^3/uL (150-400); Red Blood Cell Count 2.58 X10^6/uL (4.0-5.2); Red Cell Distribution Width 17.2 % (11.6-14.8); White Blood Cell Count 7.3 X10^3/uL (4.5-11.0)
[2018-11-24] MEDS: DOCUSATE 100 MG CAPSULE PO ×2 (08:28→20:40)
[2018-11-24] MEDS: OXYCODONE ER 20 MG TAB PO ×2 (08:30→20:40)
[2018-11-24] MEDS: MAGNESIUM HYDROXIDE 30 ML UDC PO (08:31)
--- NOTE | 2018-11-24 10:03 | P.PN_ITS ---
Subjective Date Patient Seen: 11/24/18 Time Patient Seen: 10:01 Interval history: Patient is now postoperative day 2. By lumbar fusion. Patient is doing much better today. Much better pain control. Resting comfortably in bed. Has been up multiple times with physical therapy. And able to ambulate quite well with the walker. Patient lives in a two-story house and still having some difficulties with stairs and will most likely need some additional therapy with a plan of discharge tomorrow. Exam Vital Signs (past 8 hours): - 11/24/18 06:28 11/24/18 08:00 Temperature 98.7 F 98.4 F Pulse Rate 72 79 Respiratory Rate 18 16 Blood Pressure 121/76 122/78 Pulse Oximetry 96 94 Oxygen Delivery Method Room Air Oxygen Flow Rate 3 Narrative Exam Narrative: On physical exam, patient is alert and oriented x3. Not having any significant pain today. Dressing is clean dry and intact. Positive dorsifle xion and plantar flexion of the toes and ankle. Palpable pedal pulses. 5/5 strength in dorsiflexion and plantar flexion. Good strength and knee flexion and extension as well. Objective Labs Result Diagrams: 11/24/18 07:27 Labs: Laboratory Results - last 24 hr 11/24/18 07:27 WBC 7.3 RBC 2.58 L Hgb 8.9 L Hct 26.7 L MCV 103.8 H MCH 34.7 H MCHC 33.4 RDW 17.2 H Plt Count 44 L Assessment & Plan Post-op Postoperative Procedures Operation Date: 11/22/18 10:45 Actual Procedures Side Surgeon p L3-4,L4-5 TLIF w/Posterior Instru. Garcia Hale MD Postoperative day: 2 Postoperative status: doing well Postoperative status narrative: Patient doing well after surgery to the lumbar spine. Plan will be to discharge patient home tomorrow. Postoperative plan: routine post-op care Time Spent With Patient less than 15 minutes
[2018-11-24] MEDS: SODIUM CHLORIDE 0.9% 500 ML 21 ML IV (10:08)
--- NOTE | 2018-11-24 10:27 | PT.IPTN ---
Current Diagnoses Opioid use, unspecified, uncomplicated (11/22/18) Spondylolisthesis, lumbar region (11/22/18) Other spondylosis with radiculopathy, lumbar region (11/22/18) Spinal stenosis, lumbar region with neurogenic claudication (11/22/18) Arthrodesis status (11/22/18) Surgery Performed Operation Date: 11/22/18 10:45 Actual Procedures p L3-4,L4-5 TLIF w/Posterior Instru. - Garcia Hale MD Physical Therapy Treatment Note M2 PT-IP Current Condition Start: 11/23/18 12:15 Freq: NEEDED Status: Active Protocol: Document 11/23/18 10:25 AB (Rec: 11/23/18 12:38 AB [id number]) Physical Therapy Current Condition Current Condition Evaluation Date 11/23/18 Treatment Diagnosis L3-L5 fusion/lami; difficulty in walking Onset Date 11/22/18 Precautions Lumbar Precautions Log Roll No Twisting Limit Bending Lifting Restriction of 10 lbs Gait Belt above Incisional Area M3 PT-IP Subjective Start: 11/23/18 12:15 Freq: NEEDED Status: Active Protocol: Document 11/24/18 09:00 CLB (Rec: 11/24/18 10:27 CLB [id number]) Subjective Physical Therapy Visit Type Type Treatment Note Visit Start Time 09:00 Visit Stop Time 09:25 Total Visit Minutes 25 Number of TOEING STOCKINGS Visits 2 Physical Therapy Visit Comments Patient Comments Pt willing to work with therpay. Therapy Pain Assessment Pain When Pain Assessed At Rest Pain Present Pain Present Pain Reported M4 PT-IP Mobility and Gait Start: 11/23/18 12:15 Freq: NEEDED Status: Active Protocol: Document 11/24/18 09:00 CLB (Rec: 11/24/18 10:27 CLB [id number]) PT-Transfer Assessment Sit to and From Stand Sit to and from Stand Contact Guard Assistance 1 Person Assistance Use of Upper Extremities Equipment Transfer Assistive Device Gait Belt Front Wheeled Walker Comments Mobility Comments Pt using proper sequencing with scooting to edge of chair and sit<>stand. Gait Assessment Gait Gait Assistance Required: Standby Assistance Contact Guard Assist Distance (Feet) 250 Able to Maintain Weight Bearing Status Yes During Gait Assistive Devices Assistive Device Gait Belt Front Wheeled Walker Orthotic/Prosthetic Devices or Brace: No Gait Deviations General Gait Pattern Antalgic Factors Limiting Gait Function Factors Limiting Gait Function Decreased Sensation Decreased Strength Pain Poor Balance Poor Safety Awareness Comments Gait Comments Pt increased ambulation requiring assist with IV lines . M5 PT-IP Objective Assessments Start: 11/23/18 12:15 Freq: NEEDED Status: Active Protocol: Document 11/23/18 10:25 AB (Rec: 11/23/18 12:38 AB [id number]) Orientation Orientation/Cognition Level of Alertness Alert Orientation Name Age Place Situation Gross Range of Motion Lower Extremity ROM Assessment Bilaterally Impaired Impairments pain limiting movement Strength Lower Extremity Strength Assessment Bilaterally Impaired Comments Strength Comments RLE: 3+/5 LLE: 3/5 Sensation Assessment Sensation Gross Sensation Left LE Impaired Sensation Description Numbness Comments Sensation Comments c/o L foot numbness/decrease sensation Muscle Tone Muscle Tone WNL Yes M6 PT-IP Treatment Start: 11/23/18 12:15 Freq: NEEDED Status: Active Protocol: Document 11/24/18 09:00 CLB (Rec: 11/24/18 10:27 CLB [id number]) Physical Therapy Treatment Education Education Provided Precautions Safety Other Treatments Other Treatment Performed Pt performed standing marching M7 PT-IP Assessment and Plan Start: 11/23/18 12:15 Freq: NEEDED Status: Active Protocol: Document 11/24/18 09:00 CLB (Rec: 11/24/18 10:27 CLB [id number]) PT Summary Assessment and Plan Summary Impairments Pain ROM Strength Balance Coordination Sensation Tone Cognition Bed Mobility Transfers Gait Activity Tolerance Assessment Summary Pt continues to improve all mobility requiring CGA for sit -stand and CGA/SBA for ambulation. Pt increased ambulation to ~225ft. Pt recalled 3/3 precautions. However pt has 16 stairs once in her home to get to her bedroom and is unable at this time to trial stairs. Will trial stairs when appropriate. Left pt in chair with pillows , ice and stool for feet , call light and all other needs within reach. present . Goals Bed Mobility Goal Standby Assistance Transfer Goal Standby Assistance Front Wheeled Walker Gait Goal Standby Assistance Front Wheel Walker Gait Distance 150 Other Goals up/down 5 steps with bialteral rails CGA up/down 16 steps with R rail ascending CGA Days to Meet Goals 5 Frequency of Treatment Frequency Of Treatment Twice a Day Treatment Plan Physical Therapy Treatment Plan Bed Mobility Training Transfer Training Gait Training Therapeutic Exercise Balance Retraining Post Op Education Discharge Planning Hot or Cold Pack Neuromuscular Re-ed Coordination Retraining Manual Therapy Other Recommendations and Next Treatment bed mobility, ambulation Focus Recommendations To Nursing Amount of Assist Needed 1 Person Assist Discharge Recommendations PT Discharge Recommendations Home with Assistance SNF Rehab Equipment Needed for Home Before FWW, shower chair, cane for Discharge stair climbing: if pt is going home
--- NOTE | 2018-11-24 12:51 | CM.DPNOTE ---
DCP/continued: Reviewed chart. Met with patient and spouse/Steven at bedside explained CM/SW role. At time of visit therapy in room doing session. Patient up with PT walking in hallway with FWW and SOLID TIRE TUBER MACHINE OPERATOR/Kamala. At this time d/c needs unclear. Patient unsure if she will be able to d/c home? Patient aware that if SNF needed, CM team will need to obtain authorization from [place]. Spouse hopes that patient improves enough to d/c home. P: CM team following closely for d/c planning needs. Per PT/Sonido patient will need FWW for home use. Sona Paredes MSW
--- NOTE | 2018-11-24 15:18 | PT.IPTN ---
Current Diagnoses Opioid use, unspecified, uncomplicated (11/22/18) Spondylolisthesis, lumbar region (11/22/18) Other spondylosis with radiculopathy, lumbar region (11/22/18) Spinal stenosis, lumbar region with neurogenic claudication (11/22/18) Arthrodesis status (11/22/18) Surgery Performed Operation Date: 11/22/18 10:45 Actual Procedures p L3-4,L4-5 TLIF w/Posterior Instru. - Garcia Hale MD Physical Therapy Treatment Note M2 PT-IP Current Condition Start: 11/23/18 12:15 Freq: NEEDED Status: Active Protocol: Document 11/23/18 10:25 AB (Rec: 11/23/18 12:38 AB [id number]) Physical Therapy Current Condition Current Condition Evaluation Date 11/23/18 Treatment Diagnosis L3-L5 fusion/lami; difficulty in walking Onset Date 11/22/18 Precautions Lumbar Precautions Log Roll No Twisting Limit Bending Lifting Restriction of 10 lbs Gait Belt above Incisional Area M3 PT-IP Subjective Start: 11/23/18 12:15 Freq: NEEDED Status: Active Protocol: Document 11/24/18 14:40 CLB (Rec: 11/24/18 15:18 CLB [id number]) Subjective Physical Therapy Visit Type Type Treatment Note Visit Start Time 14:40 Visit Stop Time 15:05 Total Visit Minutes 25 Number of COLLAR STITCHER Visits 3 Physical Therapy Visit Comments Patient Comments Pt willing to work with therapy and wanting to trial stairs. Therapy Pain Assessment Pain When Pain Assessed During Mobility Pain Present Pain Present Pain Reported Location back Intensity 3 Scale Used Numeric (1 - 10) M4 PT-IP Mobility and Gait Start: 11/23/18 12:15 Freq: NEEDED Status: Active Protocol: Document 11/24/18 14:40 CLB (Rec: 11/24/18 15:18 CLB [id number]) PT-Transfer Assessment Sit to and From Stand Sit to and from Stand Standby Assistance Use of Upper Extremities Equipment Transfer Assistive Device Gait Belt Front Wheeled Walker Transfers Transfer Destination Chair Wheelchair Transfer Technique Stand Pivot Transfer Ability Level of Assist Standby Assistance Use of Upper Extremities Gait Assessment Gait Gait Assistance Required: Standby Assistance Contact Guard Assist Distance (Feet) 250 Able to Maintain Weight Bearing Status Yes During Gait Assistive Devices Assistive Device Gait Belt Front Wheeled Walker Orthotic/Prosthetic Devices or Brace: No Gait Deviations General Gait Pattern Antalgic Factors Limiting Gait Function Factors Limiting Gait Function Decreased Sensation Decreased Strength Pain Poor Balance Poor Safety Awareness Stair Climbing Assessment Evaluation Level of Assist On Stairs Standby Assistance Contact Guard Assistance Devices Stair Climbing Assistive Devices Right Railing Technique/Endurance Stair Climbing Direction Ascend and Descend Stair Climbing Technique Step to Step Number of Steps Climbed 3 Query Text: Stair Climbing Set # Repetitions (reps) 5 Comments Stair Climbing Comments Pt successfully able to climb stairs simulating the 16 stairs she needs to navigate at home. Pt required cues and CGA then able to perform two sets of 3 steps SBA. M5 PT-IP Objective Assessments Start: 11/23/18 12:15 Freq: NEEDED Status: Active Protocol: Document 11/23/18 10:25 AB (Rec: 11/23/18 12:38 AB [id number]) Orientation Orientation/Cognition Level of Alertness Alert Orientation Name Age Place Situation Gross Range of Motion Lower Extremity ROM Assessment Bilaterally Impaired Impairments pain limiting movement Strength Lower Extremity Strength Assessment Bilaterally Impaired Comments Strength Comments RLE: 3+/5 LLE: 3/5 Sensation Assessment Sensation Gross Sensation Left LE Impaired Sensation Description Numbness Comments Sensation Comments c/o L foot numbness/decrease sensation Muscle Tone Muscle Tone WNL Yes M6 PT-IP Treatment Start: 11/23/18 12:15 Freq: NEEDED Status: Active Protocol: Document 11/24/18 09:00 CLB (Rec: 11/24/18 10:27 CLB [id number]) Physical Therapy Treatment Education Education Provided Precautions Safety Other Treatments Other Treatment Performed Pt performed standing M7 PT-IP Assessment and Plan Start: 11/23/18 12:15 Freq: NEEDED Status: Active Protocol: Document 11/24/18 14:40 CLB (Rec: 11/24/18 15:18 CLB [id number]) PT Summary Assessment and Plan Summary Impairments Pain ROM Strength Balance Coordination Sensation Tone Cognition Bed Mobility Transfers Gait Activity Tolerance Assessment Summary Pt successfully able to climb stairs CGA/SBA. Pt ambulated ~ 250ft with FWW/SBA. Pt is SBA for sit<>stand and has good safety awareness with walker during ambulation. Goals Bed Mobility Goal Standby Assistance Transfer Goal Standby Assistance Front Wheeled Walker Gait Goal Standby Assistance Front Wheel Walker Gait Distance 150 Other Goals up/down 5 steps with bialteral rails CGA up/down 16 steps with R rail ascending CGA Days to Meet Goals 5 Frequency of Treatment Frequency Of Treatment Twice a Day Treatment Plan Physical Therapy Treatment Plan Bed Mobility Training Transfer Training Gait Training Therapeutic Exercise Balance Retraining Post Op Education Discharge Planning Hot or Cold Pack Neuromuscular Re-ed Coordination Retraining Manual Therapy Recommendations To Nursing Amount of Assist Needed 1 Person Assist Discharge Recommendations PT Discharge Recommendations Home with Assistance Equipment Needed for Home Before FWW, shower chair: if pt is Discharge going home
[2018-11-24] MEDS: SENNOSIDES 8.6 MG TABLET 17.2 MG PO (20:40)
--- NOTE | 2018-11-24 20:55 | PC.NURSE ---
Addendum entered by April Maxwell R.N. 11/24/18 21:56: 2200 - MACHINE I TRIMMER cleared for 5.2mg. Pt remains up in chair. Denies further needs at this time. Call light in reach. Original Note: 2029 - Pt assisted to BSC, Reports pain controlled with MACHINE I TRIMMER, however requesting oral medication for night time. So I can taper off the IV. Discussed home pain control, alternative interventions. Pt request to sit in chair for self HS care, snack provided. Call light in reach.
[2018-11-25] MEDS: HYDROMORPHONE PCA (6MG/30ML) 6 MG/30 ML PCA.VIAL IV (02:23)
[2018-11-25] MEDS: OXYCODONE IR 5 MG TABLET 10 MG PO (02:34)
[2018-11-25 05:33] VITALS: BP 107/57; PULSE 66; RESP 16; TEMP 36.9; O2SAT 98
[2018-11-25] MEDS: LEVOTHYROXINE 137 MCG TABLET PO (06:10)
--- NOTE | 2018-11-25 06:33 | PC.NURSE ---
Patient dozed lightly, used 6.8mg Dilaudid FOUNTAIN PEN NIBS INSPECTOR for night, 10mg PO Percolone given x1 for breakthrough pain per prn orders, moaning in am, declined offer of anything besides FOUNTAIN PEN NIBS INSPECTOR, rolled over using logrolling Up to BSC once with walker and person assist, requested use of bedpan once. VSS. Rogerg D/I, CMS intact.
[2018-11-25 08:00] VITALS: BP 131/70; PULSE 63; RESP 17; TEMP 37.1; O2SAT 97
[2018-11-25] MEDS: HYDROMORPHONE 2 MG TABLET 4 MG PO ×3 (08:08→20:02)
[2018-11-25] MEDS: DOCUSATE 100 MG CAPSULE PO ×2 (08:08→20:02)
[2018-11-25] MEDS: OXYCODONE ER 20 MG TAB PO ×2 (08:51→15:58)
[2018-11-25] MEDS: IBUPROFEN 400 MG TABLET PO (09:50)
--- NOTE | 2018-11-25 10:31 | PM.PNPO.1 ---
Subjective Date Patient Seen: 11/25/18 Time Patient Seen: 07:31 Interval history: Patient's pain is moderate without movements severe with movement. She has been ambulating in the watts with physical therapy. Denies nausea vomiting. No fever chills. Exam Vital Signs (past 8 hours): - 11/25/18 05:33 11/25/18 08:00 Temperature 98.4 F 98.8 F Pulse Rate 66 63 Respiratory Rate 16 17 Blood Pressure 107/57 L 131/70 Pulse Oximetry 98 97 Oxygen Delivery Method Room Air Oxygen Flow Rate 0 Narrative Exam Narrative: A 48-year-old female resting comfortably in bed in no apparent distress. Neurovascular status intact to the bilateral lower extremities. Lumbar dressing is clean, dry and intact. Objective Labs Result Diagrams: 11/24/18 07:27 Assessment & Plan Post-op (1) Fibromyalgia: Current Visit: Yes Status: Acute Postoperative Procedures Operation Date: 11/22/18 10:45 Actual Procedures Side Surgeon p L3-4,L4-5 TLIF w/Posterior Instru. Garcia Hale MD Patient is still on CARPENTER RAILCAR Dilaudid. We will discontinue the CARPENTER RAILCAR Dilaudid adjust her pain meds appropriately. Once we had better pain management on oral meds will discuss discharge. Discharge possibly later today or tomorrow. Reviewed note from Dr. Urbano who manages her chronic pain. The patient typically takes oxycodone 10 mg, 2 tablets 5 times daily as needed for pain.
--- NOTE | 2018-11-25 10:36 | P.PN_ITS ---
Subjective Date Patient Seen: 11/25/18 Time Patient Seen: 07:31 Interval history: Patient's pain is moderate without movements severe with movement. She has been ambulating in the watts with physical therapy. Denies nausea vomiting. No fever chills. Exam Vital Signs (past 8 hours): - 11/25/18 05:33 11/25/18 08:00 Temperature 98.4 F 98.8 F Pulse Rate 66 63 Respiratory Rate 16 17 Blood Pressure 107/57 L 131/70 Pulse Oximetry 98 97 Oxygen Delivery Method Room Air Oxygen Flow Rate 0 Narrative Exam Narrative: A 48-year-old female resting comfortably in bed in no apparent distress. Neurovascular status intact to the bilateral lower extremities. Lumbar dressing is clean, dry and intact. Objective Labs Result Diagrams: 11/24/18 07:27 Assessment & Plan Post-op (1) Fibromyalgia: Current Visit: Yes Status: Acute Postoperative Procedures Operation Date: 11/22/18 10:45 Actual Procedures Side Surgeon p L3-4,L4-5 TLIF w/Posterior Instru. Garcia Hale MD Patient is still on GIFTED PROGRAM TEACHER Dilaudid. We will discontinue the GIFTED PROGRAM TEACHER Dilaudid adjust her pain meds appropriately. Once we had better pain management on oral meds will discuss discharge. Discharge possibly later today or tomorrow. Reviewed note from Dr. Urbano who manages her chronic pain. The patient typically takes oxycodone 10 mg, 2 tablets 5 times daily as needed for pain.
[2018-11-25] MEDS: hydrOXYzine pamoate 25 MG CAPSULE PO ×2 (10:50→20:02)
--- NOTE | 2018-11-25 11:08 | PC.NURSE ---
Addendum entered by Luis Armando Nam R.N. 11/25/18 14:48: Pt able to rest after vistaril. States tolerating pain 3/10 and requests no PRNs at this time. Original Note: Pt reports pain 7/10 on 0-10 pain scale to surgical site. Describes pain as cramping and spasming. Reports generalized discomfort. I'm just sore all over. Additionally states that she did not sleep well overnight r/t pain and discomfort. Facial grimacing, wincing, irritability, and intermittent moaning noted. Dsg to surgical site is dry and intact with small amount of shadow drainage to upper left portion present and unchanged from this RNs assessment the previous 2 days. Skin surrounding dressing is intact without erythema or bruising. Dilaudid SLIP COVER CUTTER was discontinued approx 0900 with 1.4 mg used. Pt is requesting ice pack and frequent position changes. Assisted to chair and provided pillows for comfort. PO PRN pain med regimen implemented. Post administration pain assessment remains 7/10 on 0-10 pain scale. Pt continues to report spasming to back as well as cramping pain. Vistaril given for spasm. Call placed to PA to report non-pharm and pharm intervention with subjective and objective pain assessment. After vistaril administration, pt states she would like to be left alone for awhile to allow sleep. Positioned for comfort and placed call light in reach. Pt agrees to use call light and wait for assistance before getting up. Yellow socks are on and call light is in easy reach.
--- NOTE | 2018-11-25 11:13 | OT.IP.TRT ---
Current Diagnoses Opioid use, unspecified, uncomplicated (11/22/18) Spondylolisthesis, lumbar region (11/22/18) Other spondylosis with radiculopathy, lumbar region (11/22/18) Spinal stenosis, lumbar region with neurogenic claudication (11/22/18) Fibromyalgia (11/22/18) Arthrodesis status (11/22/18) Surgery Performed Operation Date: 11/22/18 10:45 Actual Procedures p L3-4,L4-5 TLIF w/Posterior Instru. - Garcia Hale MD Occupational Therapy Treatment Note M2 OT-IP Current Condition Start: 11/23/18 13:08 Freq: Status: Active Protocol: Document 11/23/18 13:16 [facility] (Rec: 11/23/18 13:40 [facility] [id number]) Occupational Therapy Current Condition Current Condition Evaluation Date 11/23/18 Treatment Diagnosis Spinal Stenosis Diagnosis Onset Date 11/22/18 Post Operative Precautions Lumbar Precautions Log Roll No Twisting Limit Bending Lifting Restriction of 10 lbs Gait Belt above Incisional Area M3 OT- IP Subjective and Pain Start: 11/23/18 13:08 Freq: Status: Active Protocol: Document 11/25/18 11:07 [facility] (Rec: 11/25/18 11:13 [facility] [id number]) OT- Subjective Occupational Therapy Visit Type Type Patient Refusal Notes Called to check on pt for treatment, ICU staff states pt asleep and requesting not to be disturbed. Therefore check on pt later.
--- NOTE | 2018-11-25 11:26 | PT.IPTN ---
Current Diagnoses Opioid use, unspecified, uncomplicated (11/22/18) Spondylolisthesis, lumbar region (11/22/18) Other spondylosis with radiculopathy, lumbar region (11/22/18) Spinal stenosis, lumbar region with neurogenic claudication (11/22/18) Fibromyalgia (11/22/18) Arthrodesis status (11/22/18) Surgery Performed Operation Date: 11/22/18 10:45 Actual Procedures p L3-4,L4-5 TLIF w/Posterior Instru. - Garcia Hale MD Physical Therapy Treatment Note Notes Per RN, pt is sleeping and does not want to be disturbed right now. Will attempt later as care allows.
[2018-11-25 12:00] VITALS: BP 103/54; PULSE 81; RESP 20; TEMP 36.8; O2SAT 97
--- NOTE | 2018-11-25 16:19 | PT.IPTN ---
Current Diagnoses Opioid use, unspecified, uncomplicated (11/22/18) Spondylolisthesis, lumbar region (11/22/18) Other spondylosis with radiculopathy, lumbar region (11/22/18) Spinal stenosis, lumbar region with neurogenic claudication (11/22/18) Fibromyalgia (11/22/18) Arthrodesis status (11/22/18) Surgery Performed Operation Date: 11/22/18 10:45 Actual Procedures p L3-4,L4-5 TLIF w/Posterior Instru. - Garcia Hale MD Physical Therapy Treatment Note M2 PT-IP Current Condition Start: 11/23/18 12:15 Freq: NEEDED Status: Active Protocol: Document 11/23/18 10:25 AB (Rec: 11/23/18 12:38 AB [id number]) Physical Therapy Current Condition Current Condition Evaluation Date 11/23/18 Treatment Diagnosis L3-L5 fusion/lami; difficulty in walking Onset Date 11/22/18 Precautions Lumbar Precautions Log Roll No Twisting Limit Bending Lifting Restriction of 10 lbs Gait Belt above Incisional Area M3 PT-IP Subjective Start: 11/23/18 12:15 Freq: NEEDED Status: Active Protocol: Document 11/25/18 15:30 CLB (Rec: 11/25/18 16:19 CLB [id number]) Subjective Physical Therapy Visit Type Type Treatment Note Visit Start Time 15:30 Visit Stop Time 15:45 Total Visit Minutes 15 Number of TOY CONSULTANT Visits 4 Physical Therapy Visit Comments Patient Comments Pt stating she is very tired today and having increased pain as well. Pt agreed to get up to use BSC and ambulate, once pt up pt decided not to ambulate and sat in chair. Therapy Pain Assessment Pain When Pain Assessed During Mobility Pain Present Pain Present Pain Reported Location back Pain Behaviors Moaning Wincing Pain Management Techniques Modification of Treatment Re-positioning Timing of Activity with Medications M4 PT-IP Mobility and Gait Start: 11/23/18 12:15 Freq: NEEDED Status: Active Protocol: Document 11/25/18 15:30 CLB (Rec: 11/25/18 16:19 CLB [id number]) PT-Bed Mobility Assessment Rolling Type of Rolling Roll to Right Level of Assist Standby Assistance Supine to Sit Supine to Sit Standby Assistance Bedrails Scooting Scooting to Edge of Bed Standby Assistance PT-Transfer Assessment Sit to and From Stand Sit to and from Stand Standby Assistance Use of Upper Extremities Equipment Transfer Assistive Device Gait Belt Front Wheeled Walker Transfers Transfer Destination Chair Bedside Commode Transfer Technique Stand Pivot Transfer Ability Level of Assist Standby Assistance Use of Upper Extremities Gait Assessment Comments Gait Comments Pt declined ambulation. M5 PT-IP Objective Assessments Start: 11/23/18 12:15 Freq: NEEDED Status: Active Protocol: Document 11/23/18 10:25 AB (Rec: 11/23/18 12:38 AB [id number]) Orientation Orientation/Cognition Level of Alertness Alert Orientation Name Age Place Situation Gross Range of Motion Lower Extremity ROM Assessment Bilaterally Impaired Impairments pain limiting movement Strength Lower Extremity Strength Assessment Bilaterally Impaired Comments Strength Comments RLE: 3+/5 LLE: 3/5 Sensation Assessment Sensation Gross Sensation Left LE Impaired Sensation Description Numbness Comments Sensation Comments c/o L foot numbness/decrease sensation Muscle Tone Muscle Tone WNL Yes M6 PT-IP Treatment Start: 11/23/18 12:15 Freq: NEEDED Status: Active Protocol: Document 11/24/18 09:00 CLB (Rec: 11/24/18 10:27 CLB [id number]) Physical Therapy Treatment Education Education Provided Precautions Safety Other Treatments Other Treatment Performed Pt performed standing marching M7 PT-IP Assessment and Plan Start: 11/23/18 12:15 Freq: NEEDED Status: Active Protocol: Document 11/25/18 15:30 CLB (Rec: 11/25/18 16:19 CLB [id number]) PT Summary Assessment and Plan Summary Impairments Pain ROM Strength Balance Coordination Sensation Tone Cognition Bed Mobility Transfers Gait Activity Tolerance Assessment Summary Pt is SBA for all bed mobility and transfers. Pt reports increase in pain but did not give number. Pt declined ambulation but sat in chair after using bedside commode. RN was notified of pain, transfer ability and that pt declined ambulation at this time. Goals Bed Mobility Goal Standby Assistance Transfer Goal Standby Assistance Front Wheeled Walker Gait Goal Standby Assistance Front Wheel Walker Gait Distance 150 Other Goals up/down 5 steps with bialteral rails CGA up/down 16 steps with R rail ascending CGA Days to Meet Goals 5 Frequency of Treatment Frequency Of Treatment Twice a Day Treatment Plan Physical Therapy Treatment Plan Bed Mobility Training Transfer Training Gait Training Therapeutic Exercise Balance Retraining Post Op Education Discharge Planning Hot or Cold Pack Neuromuscular Re-ed Coordination Retraining Manual Therapy Other Recommendations and Next Treatment ambulation Focus Recommendations To Nursing Amount of Assist Needed 1 Person Assist Discharge Recommendations PT Discharge Recommendations Home with Assistance Equipment Needed for Home Before FWW, shower chair: if pt is Discharge going home
--- NOTE | 2018-11-25 16:49 | OT.IP.TRT ---
Current Diagnoses Opioid use, unspecified, uncomplicated (11/22/18) Spondylolisthesis, lumbar region (11/22/18) Other spondylosis with radiculopathy, lumbar region (11/22/18) Spinal stenosis, lumbar region with neurogenic claudication (11/22/18) Fibromyalgia (11/22/18) Arthrodesis status (11/22/18) Surgery Performed Operation Date: 11/22/18 10:45 Actual Procedures p L3-4,L4-5 TLIF w/Posterior Instru. - Garcia Hale MD Occupational Therapy Treatment Note M2 OT-IP Current Condition Start: 11/23/18 13:08 Freq: Status: Active Protocol: Document 11/23/18 13:16 [facility] (Rec: 11/23/18 13:40 [facility] [id number]) Occupational Therapy Current Condition Current Condition Evaluation Date 11/23/18 Treatment Diagnosis Spinal Stenosis Diagnosis Onset Date 11/22/18 Post Operative Precautions Lumbar Precautions Log Roll No Twisting Limit Bending Lifting Restriction of 10 lbs Gait Belt above Incisional Area M3 OT- IP Subjective and Pain Start: 11/23/18 13:08 Freq: Status: Active Protocol: Document 11/25/18 16:36 [facility] (Rec: 11/25/18 16:49 [facility] [id number]) OT- Subjective Occupational Therapy Visit Type Type Treatment Note Visit Start Time 16:10 Visit Stop Time 16:23 Total Visit Minutes 13 Occupational Therapy Visit Comments Patient Comments Pt very tearful and in pain , however after much encouragement from and therapist,pt willing to get up and take a walk. Pt not wanting to shower at this time but states may want to try tomorrow morning. Patient/Caregiver Goals Pt's states feels capable to assist at home . OT Pain Assessment Pain When Pain Assessed At Rest Pain Present Pain Present Pain Reported Location back Pain Behaviors Facial Grimacing Moaning Wincing Management Techniques Apply Cold Distraction Re-positioning Timing of Activity with Medications M5 OT- IP IADL's Start: 11/23/18 13:08 Freq: Status: Active Protocol: Document 11/23/18 13:16 [facility] (Rec: 11/23/18 13:40 [facility] [id number]) OT-Instrumental Activities of Daily Living Meal Preparation Meal Preparation Comments Pt's to be home to provdie assist for all IADL needs in addition to ADl's. M6 OT- IP Functional Cognition Start: 11/23/18 13:08 Freq: Status: Active Protocol: Document 11/25/18 16:36 [facility] (Rec: 11/25/18 16:49 [facility] [id number]) Cognitive Factors Limiting Selfcare Function Cognitive Ability Level of Alertness Alert Patient Orientation Name Place Situation Attention Span Ability Capable of Focused Attention Capable of Sustained Attention Ability to Follow Commands Able to Follow Multi-Step Commands Problem Solving Ability Needs Assist to Identify Solutions Cognitive Comments Cognitive Assessment Comments Pt very tearful however able to follow directions and make needs known. M7 OT- IP Mobility and Balance Start: 11/23/18 13:08 Freq: Status: Active Protocol: Document 11/25/18 16:36 [facility] (Rec: 11/25/18 16:49 [facility] [id number]) OT-Transfer Assessment Sit to and From Stand Sit to and from Stand Standby Assistance Contact Guard Assistance 1 Person Assistance Transfers Transfer Ability Contact Guard Assistance Minimal Assistance 1 Person Assistance Technique Transfer Destination Chair Transfer Technique Stand Step Pivot Devices Transfer Assistive Devices Gait Belt Front Wheeled Walker Comments Mobility Comments Pt able to come to stand from high recliner with CGA and heavy use of arms on armrests to stand to FWW. Pt states just did her grooming needs while in the recliner and requesting to get up and walk a little. Pt a bit shaky on her legs and needing CGA for mainly reassurance and occasional steadying with FWW. [place] to ease down to recliner . Pt's bp 129/83 after walking in the hallway, O2 on RA 97%. OT- Balance Assessment Sitting Balance and Reactions Static Sitting Balance Ability Normal Dynamic Sitting Balance Ability Good Standing Balance and Reactions Static Standing Balance Ability Fair M8 OT- IP Objective Assessments Start: 11/23/18 13:08 Freq: Status: Active Protocol: Document 11/23/18 13:16 [facility] (Rec: 11/23/18 13:40 [facility] [id number]) OT Gross Range of Motion Upper Extremity Range of Motion Assessment Within Functional Limits OT Strength Comments Strength Comments WFL M9 OT- IP Assessment and Plan Start: 11/23/18 13:08 Freq: Status: Active Protocol: Document 11/25/18 16:36 [facility] (Rec: 11/25/18 16:49 [facility] [id number]) OT Summary Assessment and Plan Potential Rehabilitation Potential Good Analytic Complexity at Evaluation Low Summary OT Impairments Pain Balance Functional Cognition Functional Mobility Grooming Dressing Toileting Bathing Toilet Transfers Shower Transfers Progress Towards Goals Progressing Toward Goals Slow Progress due to Pain Slow Progress due to Cognition Assessment Summary Pt low complexity and doing much better with mobility needs compared to day of OT eval. However, pt continues to have lots of pain. Pt's states has already picked up all OT equipment needs for home use. Tomorrow to look at caregiver training with for showering needs and dressing. Therefore suggest home with assist at this time. Goals Grooming Goal Standby Assistance Dressing Goal Minimal Assistance Toileting Goal Standby Assistance Bathing Goal Minimal Assistance Toilet Transfer Goal Standby Assistance Shower Transfer Goal Minimal Assistance Patient/Caregiver Education Goal Demonstrate Post-Op Precautions Caregiver Independent Assisting Patient Days to Meet Goals 3 Frequency of Treatment Frequency Of Treatment Once a Day Treatment Plan OT Treatment Plan ADL Training Functional Cognition Training Functional Mobility Patient/Family Education Discharge Planning Other Treatment Recommendations and Next caregiver training for Treatment Focus showering needs Discharge Recommendations OT Discharge Recommendations Home with Assistance Home Equipment Needs Tub bench, BSC, LB AED, toilet aid, FWW
[2018-11-25 20:00] VITALS: BP 109/57; PULSE 88; RESP 18; TEMP 36.7
[2018-11-25] MEDS: diazePAM 5 MG TABLET PO (20:40)
[2018-11-26] MEDS: OXYCODONE ER 20 MG TAB PO ×3 (00:17→16:34)
[2018-11-26] MEDS: hydrOXYzine pamoate 25 MG CAPSULE PO ×3 (00:25→21:43)
[2018-11-26 00:30] VITALS: BP 107/66; PULSE 77; RESP 18; TEMP 36.6; O2SAT 97
[2018-11-26] MEDS: HYDROMORPHONE 2 MG TABLET 4 MG PO ×5 (02:20→21:42)
[2018-11-26 04:52] VITALS: BP 128/75; PULSE 65; RESP 16; TEMP 36.6; O2SAT 99
[2018-11-26] MEDS: LEVOTHYROXINE 137 MCG TABLET PO (05:59)
[2018-11-26] MEDS: diazePAM 5 MG TABLET PO (05:59)
[2018-11-26] MEDS: IBUPROFEN 400 MG TABLET PO (06:01)
--- NOTE | 2018-11-26 06:35 | PC.NURSE ---
Patient rested on and off medicated with analgesics as ordered in NOV, 4mg PO Dilaudid given q4h prn, at 0600, patient assisted up in chair, moaning and crying states my pain is not being controlled and I will talk to the surgeon when he makes his rounds PO Valium and ibuprofen given along with PO Dilaudid at that time.
--- NOTE | 2018-11-26 08:57 | P.PN_ITS ---
Subjective Date Patient Seen: 11/26/18 Time Patient Seen: 08:54 Interval history: Hospital day 5, postop day 4 following L3-4, L4-5 TLIF and posterior instrumentation by Dr. Hale. Patient continues having good pain control issues. 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 Currently getting OxyContin 20 mg q.8h and Dilaudid 4 mg q.4h. Patient complains of continued back pain. Does note some numbness to her right leg. She has been up with physical therapy ambulating. She does not feel comfortable going home because of pain level. She had been given some oral steroids previously which gave her good relief. Exam Vital Signs (past 8 hours): - 11/26/18 04:52 Temperature 97.8 F Pulse Rate 65 Respiratory Rate 16 Blood Pressure 128/75 Pulse Oximetry 99 Oxygen Delivery Method Room Air Oxygen Flow Rate 0 Narrative Exam Narrative: Patient is alert and responsive seated in chair appearing and discomfort. Back. Dressing is dry without drainage or inflammation. Legs. No calf pain or swelling. Pulses symmetrical. Some decreased sensation to her right lower leg compared to left. Objective Labs Result Diagrams: 11/24/18 07:27 Assessment & Plan Post-op Postoperative Procedures Operation Date: 11/22/18 10:45 Actual Procedures Side Surgeon p L3-4,L4-5 TLIF w/Posterior Instru. Garcia Hale MD Plan: Will add dexamethasone to see if this will help with her pain and incisional inflammation. Continue on current pain medications. Anticipate discharge home tomorrow if her pain is improved with steroid. We will plan to keep her on dexamethasone for about 5 days.
[2018-11-26 09:04] VITALS: BP 117/57; PULSE 78; RESP 16; TEMP 37.1; O2SAT 96
[2018-11-26] MEDS: DEXAMETHASONE 4 MG TABLET 10 MG PO (09:40)
[2018-11-26] MEDS: DOCUSATE 100 MG CAPSULE PO ×2 (09:45→21:43)
[2018-11-26] MEDS: SODIUM CHLORIDE 0.9% FLUSH 10 ML IV (09:46)
[2018-11-26] MEDS: SENNOSIDES 8.6 MG TABLET 17.2 MG PO (09:48)
[2018-11-26 09:52] LABS: Hematocrit 27.3 % (36-46); Hemoglobin 9.4 g/dL (12.0-16.0); Mean Corpuscular HGB Conc 34.4 % (30-36); Mean Corpuscular Hemoglobin 35.3 PG (26-34); Mean Corpuscular Volume 102.7 fL (80-100); Red Blood Cell Count 2.66 X10^6/uL (4.0-5.2); White Blood Cell Count 6.2 X10^3/uL (4.5-11.0)
[2018-11-26 09:53] LABS: Platelet Count 37 X10^3/uL (150-400)
[2018-11-26 10:21] LABS: Anisocytosis 1+; Macrocytosis 1+
--- NOTE | 2018-11-26 11:15 | PT.IPTN ---
Current Diagnoses Opioid use, unspecified, uncomplicated (11/22/18) Spondylolisthesis, lumbar region (11/22/18) Other spondylosis with radiculopathy, lumbar region (11/22/18) Spinal stenosis, lumbar region with neurogenic claudication (11/22/18) Fibromyalgia (11/22/18) Arthrodesis status (11/22/18) Surgery Performed Operation Date: 11/22/18 10:45 Actual Procedures p L3-4,L4-5 TLIF w/Posterior Instru. - Garcia Hale MD Physical Therapy Treatment Note M2 PT-IP Current Condition Start: 11/23/18 12:15 Freq: NEEDED Status: Active Protocol: Document 11/23/18 10:25 [facility] (Rec: 11/23/18 12:38 [facility] [id number]) Physical Therapy Current Condition Current Condition Evaluation Date 11/23/18 Treatment Diagnosis L3-L5 fusion/lami; difficulty in walking Onset Date 11/22/18 Precautions Lumbar Precautions Log Roll No Twisting Limit Bending Lifting Restriction of 10 lbs Gait Belt above Incisional Area M3 PT-IP Subjective Start: 11/23/18 12:15 Freq: NEEDED Status: Active Protocol: Document 11/26/18 08:45 [facility] (Rec: 11/26/18 11:15 [facility] [id number]) Subjective Physical Therapy Visit Type Type Patient Refusal Notes Pt does not want to work with PT until after her shower she scheduled with OT at 11:00 M4 PT-IP Mobility and Gait Start: 11/23/18 12:15 Freq: NEEDED Status: Active Protocol: Document 11/25/18 15:30 [facility] (Rec: 11/25/18 16:19 [facility] [id number]) PT-Bed Mobility Assessment Rolling Type of Rolling Roll to Right Level of Assist Standby Assistance Supine to Sit Supine to Sit Standby Assistance Bedrails Scooting Scooting to Edge of Bed Standby Assistance PT-Transfer Assessment Sit to and From Stand Sit to and from Stand Standby Assistance Use of Upper Extremities Equipment Transfer Assistive Device Gait Belt Front Wheeled Walker Transfers Transfer Destination Chair Bedside Commode Transfer Technique Stand Pivot Transfer Ability Level of Assist Standby Assistance Use of Upper Extremities Gait Assessment Comments Gait Comments Pt declined ambulation. M5 PT-IP Objective Assessments Start: 11/23/18 12:15 Freq: NEEDED Status: Active Protocol: Document 11/23/18 10:25 [facility] (Rec: 11/23/18 12:38 [facility] [id number]) Orientation Orientation/Cognition Level of Alertness Alert Orientation Name Age Place Situation Gross Range of Motion Lower Extremity ROM Assessment Bilaterally Impaired Impairments pain limiting movement Strength Lower Extremity Strength Assessment Bilaterally Impaired Comments Strength Comments RLE: 3+/5 LLE: 3/5 Sensation Assessment Sensation Gross Sensation Left LE Impaired Sensation Description Numbness Comments Sensation Comments c/o L foot numbness/decrease sensation Muscle Tone Muscle Tone WNL Yes M6 PT-IP Treatment Start: 11/23/18 12:15 Freq: NEEDED Status: Active Protocol: Document 11/24/18 09:00 [facility] (Rec: 11/24/18 10:27 [facility] [id number]) Physical Therapy Treatment Education Education Provided Precautions Safety Other Treatments Other Treatment Performed Pt performed standing marching M7 PT-IP Assessment and Plan Start: 11/23/18 12:15 Freq: NEEDED Status: Active Protocol: Document 11/25/18 15:30 [facility] (Rec: 11/25/18 16:19 [facility] [id number]) PT Summary Assessment and Plan Summary Impairments Pain ROM Strength Balance Coordination Sensation Tone Cognition Bed Mobility Transfers Gait Activity Tolerance Assessment Summary Pt is SBA for all bed mobility and transfers. Pt reports increase in pain but did not give number. Pt declined ambulation but sat in chair after using bedside commode. RN was notified of pain, transfer ability and that pt declined ambulation at this time. Goals Bed Mobility Goal Standby Assistance Transfer Goal Standby Assistance Front Wheeled Walker Gait Goal Standby Assistance Front Wheel Walker Gait Distance 150 Other Goals up/down 5 steps with bialteral rails CGA up/down 16 steps with R rail ascending CGA Days to Meet Goals 5 Frequency of Treatment Frequency Of Treatment Twice a Day Treatment Plan Physical Therapy Treatment Plan Bed Mobility Training Transfer Training Gait Training Therapeutic Exercise Balance Retraining Post Op Education Discharge Planning Hot or Cold Pack Neuromuscular Re-ed Coordination Retraining Manual Therapy Other Recommendations and Next Treatment ambulation Focus Recommendations To Nursing Amount of Assist Needed 1 Person Assist Discharge Recommendations PT Discharge Recommendations Home with Assistance Equipment Needed for Home Before FWW, shower chair: if pt is Discharge going home
--- NOTE | 2018-11-26 14:44 | OT.IP.TRT ---
Current Diagnoses Opioid use, unspecified, uncomplicated (11/22/18) Spondylolisthesis, lumbar region (11/22/18) Other spondylosis with radiculopathy, lumbar region (11/22/18) Spinal stenosis, lumbar region with neurogenic claudication (11/22/18) Fibromyalgia (11/22/18) Arthrodesis status (11/22/18) Surgery Performed Operation Date: 11/22/18 10:45 Actual Procedures p L3-4,L4-5 TLIF w/Posterior Instru. - Garcia Hale MD Occupational Therapy Treatment Note M2 OT-IP Current Condition Start: 11/23/18 13:08 Freq: Status: Active Protocol: Document 11/23/18 13:16 [facility] (Rec: 11/23/18 13:40 [facility] [id number]) Occupational Therapy Current Condition Current Condition Evaluation Date 11/23/18 Treatment Diagnosis Spinal Stenosis Diagnosis Onset Date 11/22/18 Post Operative Precautions Lumbar Precautions Log Roll No Twisting Limit Bending Lifting Restriction of 10 lbs Gait Belt above Incisional Area M3 OT- IP Subjective and Pain Start: 11/23/18 13:08 Freq: Status: Active Protocol: Document 11/26/18 10:55 [facility] (Rec: 11/26/18 14:43 [facility] [id number]) OT- Subjective Occupational Therapy Visit Type Type Treatment Note Visit Start Time 10:55 Visit Stop Time 11:50 Total Visit Minutes 55 Occupational Therapy Visit Comments Patient Comments Pt willing to shower right before lunch. Pt'w present for caregiver training . OT Pain Assessment Pain When Pain Assessed At Rest Pain Present Pain Present Pain Reported M4 OT- IP ADL's Start: 11/23/18 13:08 Freq: Status: Active Protocol: Document 11/26/18 10:55 [facility] (Rec: 11/26/18 14:43 [facility] [id number]) OT ADL-Dressing General Eval Upper Body Dressing Ability Moderate Assistance Lower Body Dressing Ability Maximum Assistance Comments OT Dressing Comments At this time MODA to help al 2nd gown over her shoulders and arm. MAXA for socks at this time. LB AED issued to pt in PM. Suggest may want to wear pads/briefs at night initially. OT ADL-Toileting General Evaluation Toileting Ability Independent Standby Assistance Comments OT Toileting Comments able to set-up bathroom for pt and pt able to do own toileting on her own. Pt's to obtain BSC. OT ADL-Bathing Bathing Type Bathing Type Shower General Evaluation Bathing Ability Moderate Assistance Areas Needing Assistance Wash/Dry Back Wash/Dry Lower Extremities Devices Bathing Equipment Hand Held Shower Sprayer Shower Chair without Arms Grab Bars Comments OT Bathing Comments Pt's able to assist pt safely for all showering needs. Pt will benefit from tub bench as has a tub at home . They already have HHSp. M5 OT- IP IADL's Start: 11/23/18 13:08 Freq: Status: Active Protocol: Document 11/23/18 13:16 [facility] (Rec: 11/23/18 13:40 [facility] [id number]) OT-Instrumental Activities of Daily Living Meal Preparation Meal Preparation Comments Pt's to be home to provide assist for all IADL needs in addition to ADl's. M6 OT- IP Functional Cognition Start: 11/23/18 13:08 Freq: Status: Active Protocol: Document 11/26/18 10:55 [facility] (Rec: 11/26/18 14:43 [facility] [id number]) Cognitive Factors Limiting Selfcare Function Cognitive Ability Level of Alertness Alert Patient Orientation Name Age Situation Attention Span Ability Capable of Focused Attention Capable of Sustained Attention Ability to Follow Commands Able to Follow Multi-Step Commands Memory Description No Deficits Noted Safety Awareness Decreased Ability to Apply Precautions Underestimates Need for Assistance Cognitive Comments Cognitive Assessment Comments Pt tends to be a bit impulsive and specific to how things need to be done, at times needing cue not to break back precautions, especially for not twisting. M7 OT- IP Mobility and Balance Start: 11/23/18 13:08 Freq: Status: Active Protocol: Document 11/26/18 10:55 [facility] (Rec: 11/26/18 14:43 [facility] [id number]) OT-Transfer Assessment Sit to and From Stand Sit to and from Stand Standby Assistance 1 Person Assistance Transfers Transfer Ability Standby Assistance Contact Guard Assistance 1 Person Assistance Technique Transfer Destination Chair Shower Stall Transfer Technique Stand Step Pivot Devices Transfer Assistive Devices Gait Belt Front Wheeled Walker Comments Mobility Comments Pt able to walk with from the room to shower room with FWW. At the end of the session when walking back to the room needing CGA to lower to recliner. OT- Balance Assessment Sitting Balance and Reactions Static Sitting Balance Ability Normal Dynamic Sitting Balance Ability Normal Standing Balance and Reactions Static Standing Balance Ability Good Dynamic Standing Balance Ability Fair M8 OT- IP Objective Assessments Start: 11/23/18 13:08 Freq: Status: Active Protocol: Document 11/23/18 13:16 [facility] (Rec: 11/23/18 13:40 [facility] [id number]) OT Gross Range of Motion Upper Extremity Range of Motion Assessment Within Functional Limits OT Strength Comments Strength Comments WFL M9 OT- IP Assessment and Plan Start: 11/23/18 13:08 Freq: Status: Active Protocol: Document 11/26/18 10:55 [facility] (Rec: 11/26/18 14:43 [facility] [id number]) OT Summary Assessment and Plan Potential Rehabilitation Potential Good Analytic Complexity at Evaluation Low Summary OT Impairments Pain Balance Functional Cognition Functional Mobility Grooming Dressing Toileting Bathing Toilet Transfers Shower Transfers Progress Towards Goals Progressing Toward Goals Slow Progress due to Pain Slow Progress due to Cognition Assessment Summary Pt doing better and able to tolerate showering with 's assist. Pt and have good understanding for OT needs and equipment. Pt looking to go home when medically stable. Goals Patient/Caregiver Education Goal Demonstrate Post-Op Precautions Caregiver Independent Assisting Patient Days to Meet Goals 1 Frequency of Treatment Frequency Of Treatment Once a Day Treatment Plan OT Treatment Plan ADL Training Patient/Family Education Other Treatment Recommendations and Next Practice with LB AED. Treatment Focus Discharge Recommendations OT Discharge Recommendations Home with Assistance Home Equipment Needs Tub bench, BSC, LB AED, toilet aid, FWW
--- NOTE | 2018-11-26 15:32 | PT.IPTN ---
Current Diagnoses Opioid use, unspecified, uncomplicated (11/22/18) Spondylolisthesis, lumbar region (11/22/18) Other spondylosis with radiculopathy, lumbar region (11/22/18) Spinal stenosis, lumbar region with neurogenic claudication (11/22/18) Fibromyalgia (11/22/18) Arthrodesis status (11/22/18) Surgery Performed Operation Date: 11/22/18 10:45 Actual Procedures p L3-4,L4-5 TLIF w/Posterior Instru. - Garcia Hale MD Physical Therapy Treatment Note M2 PT-IP Current Condition Start: 11/23/18 12:15 Freq: NEEDED Status: Active Protocol: Document 11/23/18 10:25 [facility] (Rec: 11/23/18 12:38 [facility] [id number]) Physical Therapy Current Condition Current Condition Evaluation Date 11/23/18 Treatment Diagnosis L3-L5 fusion/lami; difficulty in walking Onset Date 11/22/18 Precautions Lumbar Precautions Log Roll No Twisting Limit Bending Lifting Restriction of 10 lbs Gait Belt above Incisional Area M3 PT-IP Subjective Start: 11/23/18 12:15 Freq: NEEDED Status: Active Protocol: Document 11/26/18 14:20 [facility] (Rec: 11/26/18 15:32 [facility] [id number]) Subjective Physical Therapy Visit Type Type Treatment Note Visit Start Time 14:30 Visit Stop Time 14:40 Total Visit Minutes 10 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 of HUMAN SERVICE WORKER Visits 5 Physical Therapy Visit Comments Patient Comments Pt willing to ambulate Therapy Pain Assessment Pain When Pain Assessed During Mobility Pain Present Pain Present Pain Reported M4 PT-IP Mobility and Gait Start: 11/23/18 12:15 Freq: NEEDED Status: Active Protocol: Document 11/26/18 14:20 [facility] (Rec: 11/26/18 15:32 [facility] [id number]) PT-Transfer Assessment Sit to and From Stand Sit to and from Stand Standby Assistance Equipment Transfer Assistive Device Gait Belt Front Wheeled Walker Transfers Transfer Destination Chair Transfer Technique Stand Pivot Transfer Ability Level of Assist Standby Assistance Gait Assessment Gait Gait Assistance Required: Standby Assistance Distance (Feet) 250 Able to Maintain Weight Bearing Status Yes During Gait Assistive Devices Assistive Device Gait Belt Front Wheeled Walker Orthotic/Prosthetic Devices or Brace: No Gait Deviations General Gait Pattern Antalgic Flexed Trunk Factors Limiting Gait Function Factors Limiting Gait Function Decreased Activity Tolerance Decreased Strength Pain Comments Gait Comments Pt ambulated well requiring SBA. M5 PT-IP Objective Assessments Start: 11/23/18 12:15 Freq: NEEDED Status: Active Protocol: Document 11/23/18 10:25 [facility] (Rec: 11/23/18 12:38 [facility] [id number]) Orientation Orientation/Cognition Level of Alertness Alert Orientation Name Age Place Situation Gross Range of Motion Lower Extremity ROM Assessment Bilaterally Impaired Impairments pain limiting movement Strength Lower Extremity Strength Assessment Bilaterally Impaired Comments Strength Comments RLE: 3+/5 LLE: 3/5 Sensation Assessment Sensation Gross Sensation Left LE Impaired Sensation Description Numbness Comments Sensation Comments c/o L foot numbness/decrease sensation Muscle Tone Muscle Tone WNL Yes M6 PT-IP Treatment Start: 11/23/18 12:15 Freq: NEEDED Status: Active Protocol: Document 11/24/18 09:00 [facility] (Rec: 11/24/18 10:27 [facility] [id number]) Physical Therapy Treatment Education Education Provided Precautions Safety Other Treatments Other Treatment Performed Pt performed standing marching M7 PT-IP Assessment and Plan Start: 11/23/18 12:15 Freq: NEEDED Status: Active Protocol: Document 11/26/18 14:20 [facility] (Rec: 11/26/18 15:32 [facility] [id number]) PT Summary Assessment and Plan Summary Impairments Pain ROM Strength Balance Coordination Sensation Tone Cognition Bed Mobility Transfers Gait Activity Tolerance Assessment Summary Pt is SBA for all bed mobility , transfers and gait. Pt has good safety awareness and can recall 3/3 back precaution. Pt seems safe to d/c home when medically stable with assist of . Goals Bed Mobility Goal Standby Assistance Transfer Goal Standby Assistance Front Wheeled Walker Gait Goal Standby Assistance Front Wheel Walker Gait Distance 150 Other Goals up/down 5 steps with bialteral rails CGA up/down 16 steps with R rail ascending CGA Days to Meet Goals 5 Frequency of Treatment Frequency Of Treatment Twice a Day Treatment Plan Physical Therapy Treatment Plan Bed Mobility Training Transfer Training Gait Training Therapeutic Exercise Balance Retraining Post Op Education Discharge Planning Hot or Cold Pack Neuromuscular Re-ed Coordination Retraining Manual Therapy Other Recommendations and Next Treatment ambulation Focus Recommendations To Nursing Amount of Assist Needed 1 Person Assist Discharge Recommendations PT Discharge Recommendations Home with Assistance Equipment Needed for Home Before FWW, shower chair: if pt is Discharge going home ( will be picking these items up)
[2018-11-26 16:00] VITALS: BP 115/71; PULSE 87; RESP 20; TEMP 37.1; O2SAT 96
[2018-11-26] MEDS: DEXAMETHASONE 4 MG TABLET PO (16:35)
--- NOTE | 2018-11-26 19:21 | PC.NURSE ---
1919 - Patient has been requesting to transfer upstairs. Report given to receiving nurse Keisha. Patient transferred to room 205. Taken upstairs in wheelchair by nursing home admissions director. All belongings sent with patient.
[2018-11-26 19:58] VITALS: BP 122/76; PULSE 80; RESP 20; TEMP 36.7; O2SAT 96
--- NOTE | 2018-11-26 22:35 | PC.NURSE ---
Evening note: Patient brought from ICU, transfered to rm 205. She is A&Ox3, ambulating in room intermittently with SBA only, gait steady. Reports pain much better today, reports 4/10 tonight, medicated with Dilaudid 4 mg & Vistaril 25 mg per her request. HS snack given. Denies other questions or concerns tonight, reminded her to call nurse with call button if she has any needs.
[2018-11-27 00:39] VITALS: BP 129/89; PULSE 87; RESP 16; TEMP 36.4; O2SAT 98
[2018-11-27] MEDS: DEXAMETHASONE 4 MG TABLET PO ×2 (00:48→07:58)
--- NOTE | 2018-11-27 00:59 | PC.NURSE ---
Assumed care of pt at 2300 on 11/26/18. Pt sleeping during bedside hand-off. Awakens to voice at 0040. Pt denies dizziness when up. Steady on feet. This aligner typewriter advised pt to call for staff assist if she feels dizzy or weak. Pt verbalized understanding. Pt receptive to noc shift nursing assessment. Only allow auscultation of heart and lungs. States all systems are fine except for post-op lower back pain. Medicating per nov. Pt calling appropriately for needs.
[2018-11-27] MEDS: OXYCODONE ER 10 MG TAB 20 MG PO ×2 (01:04→07:55)
[2018-11-27] MEDS: HYDROMORPHONE 2 MG TABLET 4 MG PO ×2 (04:02→09:50)
[2018-11-27] MEDS: LEVOTHYROXINE 137 MCG TABLET PO (06:18)
[2018-11-27] MEDS: DOCUSATE 100 MG CAPSULE PO (07:57)
[2018-11-27 08:00] VITALS: BP 130/68; PULSE 75; RESP 16; TEMP 36.4; O2SAT 98
--- NOTE | 2018-11-27 08:39 | P.DS_ITS ---
History of Present Illness Date Patient Seen: 11/27/18 Time Patient Seen: 08:35 Chief complaint: [id number] Narrative: Hospital day 6, postop day 5 following L3-4, L4-5 TLIF and posterior instrumentation. Patient states her pain is significantly improved since starting on dexamethasone yesterday. States her pain level was 3/10 in the morning. Has been taking OxyContin 20 mg q.8h and Dilaudid 4 mg for breakthrough pain. She has done well with PT. Patient would like to be discharged home today. Discharge Providers Date of admission: 11/22/18 09:04 Consults: 11/22/18 21:09 Consult to Occupational Therapy Evaluate & Treat Comment: Physician Instructions: Evaluate and treat Consult to Physical Therapy Evaluate & Treat Comment: Physician Instructions: Evaluate and Treat Discharge provider: Wild Zendejas PA-C Discharge Date: 11/27/18 Summary Discharge Diagnosis: Status post L3-4, L4-5 TLIF, posterior instrumentation. Hospital Course: Patient brought to hospital on 11/22/2018 for above noted surgery. She remained stable postoperatively but had significant pain management issues. She had been on high dose of oxycodone preoperatively. Pain medications were changed. She was started on dexamethasone on postop day 4 which made significant difference for her back and leg pain. Patient ready for discharge home on postop day 5. Status at Discharge Cognitive/behavioral status at discharge: Alert, oriented no acute distress si tting in chair. Functional status at discharge: uses cane/walker Overall status at discharge: patient is progressing back to baseline Time Spent with Patient Less than 30 minutes Exam Vital Signs (past 8 hours): - 11/27/18 00:39 Temperature 97.5 F L Pulse Rate 87 Respiratory Rate 16 Blood Pressure 129/89 Pulse Oximetry 98 Oxygen Delivery Method Room Air Oxygen Flow Rate 0 Narrative Exam Narrative: Back. CovRsite dressing to lumbar incision is dry without drainage or inflammation. Legs. No calf pain or swelling. Pulses symmetrical. She is able do full leg extension from sitting position bilateral. Good strength on foot dorsiflexion plantar flexion. Objective Labs Result Diagrams: 11/26/18 09:30 Labs: Laboratory Results - last 24 hr 11/26/18 09:30 WBC 6.2 RBC 2.66 L Hgb 9.4 L Hct 27.3 L MCV 102.7 H MCH 35.3 H MCHC 34.4 RDW 17.0 H Plt Count 37 L RBC Morphology See below Anisocytosis 1+ H Macrocytosis 1+ H Discharge Plan Discharge Plan Patient Disposition: Home Discharge comment: Patient will be discharged home after cleared by PT. Given prescriptions for OxyContin, Dilaudid, Vistaril, dexamethasone. Discharge Med Rec/Prescriptions Prescriptions: New acetaminophen 325 mg Tablet 650 mg PO Q6HR PRN (Reason: Pain, Mild (1-3)) Qty: 30 RF: 0 hydromorphone 2 mg Tablet 4 mg PO Q4HR PRN (Reason: Pain) Qty: 40 RF: 0 dexamethasone 4 mg Tablet 4 mg PO Q8H Qty: 15 RF: 0 docusate sodium 100 mg Capsule 100 mg PO BID Qty: 30 RF: 0 hydroxyzine pamoate 25 mg Capsule 25 mg PO Q4HR PRN (Reason: Spasms) Qty: 30 RF: 0 oxycodone [OxyContin] 10 mg Tablet,Oral Only,Ext.Rel.12 Hr 20 mg PO Q8H Qty: 20 RF: 0 Continued levothyroxine 137 mcg Tablet 137 mcg PO DAILY RF: 0 Discontinued oxycodone 10 mg Tablet 10 mg PO PRN PRN (Reason: pain) RF: 0 Provider Discharge Instructions Diet: Diet as Tolerated Activity: Ambulate as tolerated. Use walker as needed. Limit sitting to 1 hr at a time. Avoid excessive bending or twisting of lumbar spine. No lifting or carrying more than 5-10 lb. Cold/Heat Therapy: Cold pack to lumbar area as needed Skin/Wound/Dressing Care Report to your healthcare provider any signs of infection, such as:: chills, fever, night sweats, increased pain, unusual drainage and unusual redness Dressing: Keep CovRsite dressing in place until postop visit. She may shower without the spray going directly on the dressing. Visit Report/Discharge Packet Instructions: DI for Transforaminal Lumbar Interbody Fusion Discharge Data Attending Provider: Garcia Hale Admit Date/Time: 11/22/18 09:04
--- NOTE | 2018-11-27 11:46 | PT.IPTN ---
Current Diagnoses Opioid use, unspecified, uncomplicated (11/22/18) Spondylolisthesis, lumbar region (11/22/18) Other spondylosis with radiculopathy, lumbar region (11/22/18) Spinal stenosis, lumbar region with neurogenic claudication (11/22/18) Fibromyalgia (11/22/18) Retention of urine, unspecified (11/22/18) Arthrodesis status (11/22/18) Surgery Performed Operation Date: 11/22/18 10:45 Actual Procedures p L3-4,L4-5 TLIF w/Posterior Instru. - Garcia Hale MD Physical Therapy Treatment Note M2 PT-IP Current Condition Start: 11/23/18 12:15 Freq: NEEDED Status: Active Protocol: Document 11/23/18 10:25 AB (Rec: 11/23/18 12:38 AB [id number]) Physical Therapy Current Condition Current Condition Evaluation Date 11/23/18 Treatment Diagnosis L3-L5 fusion/lami; difficulty in walking Onset Date 11/22/18 Precautions Lumbar Precautions Log Roll No Twisting Limit Bending Lifting Restriction of 10 lbs Gait Belt above Incisional Area M3 PT-IP Subjective Start: 11/23/18 12:15 Freq: NEEDED Status: Active Protocol: Document 11/27/18 11:46 GGD (Rec: 11/27/18 11:46 GGD [id number]) Subjective Physical Therapy Visit Type Type Patient Refusal Notes Pt resfused states that she able to do everything and has a FWW, She is D/C today. M4 P
--- NOTE | 2018-11-29 16:18 | CM.SWNOTE ---
Received VM from Vani stating: She was DC Sunday and stated concerns about safety at home (?) while admitted and now they are true (?) From VM; difficult to understand what Vani needed. She states I need help now. Reviewed chart briefly, no indication from any professional note about safety issues at home (?) This [employer] unable to return this call d/t high caseload demands. Home phone number: [phone] JW
== END 2018-11-27 15:23 | disposition home or self-care (01) | DRG 454 ==
LOC: AC 15:04 → ICU 11-23 10:15 → AC 11-27 08:38 → ICU 09-29 14:19
PROVIDERS: Physician Assistant; Physician Assistant Surgical; Admitting Provider Orthopaedic Surgery Orthopaedic Surgery of the Spine; Visit Provider Orthopaedic Surgery Orthopaedic Surgery of the Spine
PROC: 0SG10AJ Fusion of 2 or more Lumbar Vertebral Joints with Interbody Fusion Device, Posterior Approach, Anterior Column, Open Approach (ICD-10-PCS; principal; 2018-11-22 10:45)
DX: M43.16 Spondylolisthesis, lumbar region (principal); D69.3 Immune thrombocytopenic purpura; M48.062 Spinal stenosis, lumbar region with neurogenic claudication; M47.26 Other spondylosis with radiculopathy, lumbar region; F11.90 Opioid use, unspecified, uncomplicated; E06.3 Autoimmune thyroiditis; E03.8 Other specified hypothyroidism; M79.7 Fibromyalgia; F32.9 Major depressive disorder, single episode, unspecified; G89.29 Other chronic pain; Z87.891 Personal history of nicotine dependence; M62.838 Other muscle spasm
CPT/HCPCS: 36415; 36430; 72100; 76000; 85025; 85027; 85049; 86850; 86900; 86901; 87797; 97116; 97162; 97165; 97530; 97535; C1776; P9016; C9290; J0131; J0330; J0461; J0690; J1100; J1170; J2060; J2250; J2405; J2704; J3010; J3410; P9035